=== PATIENT | female | born 2000 | race Caucasian/White ===

== ENCOUNTER → 2021-12-10 19:35 | Outpatient (CLI) | payer OTHER, SELFPAY ==
--- NOTE | 2021-12-10 19:38 | DI.MRI.S_ITS ---
PROCEDURE: MR SHOULDER RT WO CON INDICATIONS: RIGHT SHOULDER PAIN TECHNIQUE: Noncontrast oblique coronal T2 fast spin echo with fat saturation, oblique sagittal T1 spin echo and T2 fast spin echo with fat saturation, axial T1 spin echo and T2 fast spin echo with fat saturation through the shoulder. COMPARISON: None. FINDINGS: Image quality: Excellent. Rotator cuff: No rotator cuff atrophy. No significant tear. Minor interstitial tear versus tendinosis at the junctional zone between the supra and infraspinatus (8/9). Bones and bursae: No acute fracture or dislocation. No significant acromioclavicular degeneration. Trace subacromial subdeltoid bursal fluid. Capsule and soft tissues: Within the limits of non arthrographic evaluation, there is high signal in the superior labrum (8/12, 13) around the location of the biceps anchor. The coracoid humeral ligament is within normal limits. A bit of fat signal is maintained in the rotator interval. The inferior glenohumeral ligament is under distended and not well seen. There is no edema. No high-grade arthrosis of the glenohumeral joint. The long head biceps tendon is well situated. IMPRESSION: Within the limits of non arthrographic evaluation, there is a suspected SLAP tear, including the attachment site of the biceps tendon. No major rotator cuff pathology. Dictated by: Kishore Gamez M.D. on 12/13/2021 at 14:13 Approved by: Kishore Gamez M.D. on 12/13/2021 at 14:25
== END ==
PROVIDERS: Referring Provider Student in an Organized Health Care Education/Training Program; Visit Provider Student in an Organized Health Care Education/Training Program
DX: S46.0 Injury of muscle(s) and tendon(s) of the rotator cuff of shoulder (principal); M25.511 Pain in right shoulder; X50.9XXA Other and unspecified overexertion or strenuous movements or postures, initial encounter
CPT/HCPCS: 73221

== ENCOUNTER 2023-07-08 13:24 | Emergency (ER) | payer OTHER, SELFPAY ==
[2023-07-08] VITALS (8 sets, daily range): BP systolic 112–113; BP diastolic 49–69; PULSE 73–82; RESP 14–18; TEMP 36.4–36.6; O2SAT 93–99; BMI 23.6
--- NOTE | 2023-07-08 13:12 | ED.EXTPRO ---
HPI - Extremity Problem <Augusto Chen PA-C - Last Filed: 07/08/23 14:48> General Chief complaint: Extremity Injury, Upper Stated complaint: l. radial ulna History of Present Illness HPI Narrative: This is a 23-year-old female presents emergency department due to a jujitsu injury about an hour ago. States that she was wrestling on the mat when she fell down and felt a pop and a crack to her left forearm. Complaining primarily of left forearm pain. She denies injuring any other part of her body. She denies any numbness affecting her distal extremity. She had not hit her head or lose conscious. Last ate at 8:00 a.m. this morning. No other medical history. Related Data Allergies Allergy/AdvReac Type Severity Reaction Status Date / Time No Known Drug Allergies Allergy Verified 07/08/23 13:28 Review of Systems <Augusto Chen PA-C - Last Filed: 07/08/23 14:48> Review of Systems Narrative: GENERAL: Denies chills, fatigue, malaise, fever, sweats. HEENT: Denies sinus pain, ear pain, sore throat, difficulty swallowing, dizziness. RESPIRATORY: Denies dyspnea, cough, wheezing, hemoptysis, sputum. CARDIOVASCULAR: Denies chest pain, palpitations, orthopnea, edema, GASTROINTESTINAL: Denies nausea, vomiting, abdominal pain, diarrhea, constipation, melena. : Denies dysuria, frequency, incontinence, hematuria, urinary retention. MUSCULOSKELETAL: Left forearm pain SKIN: Denies rash, skin lesions, or other NEUROLOGIC: Denies weakness, headache, numbness, change in speech, confusion, seizures, incoordination. PSYCHIATRIC: No concerning psychosocial issues. 12 point review of systems is negative except for those stated above Patient History <Augusto Chen PA-C - Last Filed: 07/08/23 14:48> Social History Smoking Status: Unknown if ever smoked Exam <MARYBETH Conde Last Filed: 07/08/23 14:48> Narrative Exam Narrative: GENERAL: Well-developed patient, in mild distress. HEAD: Atraumatic. Normocephalic. EYES: Pupils equal round and reactive. Extraocular motions intact. No scleral icterus. No injection or drainage. ENT: Nose without bleeding, purulent drainage. Throat without erythema, tonsillar hypertrophy or exudate. Airway patent. NECK: Trachea midline. Non tender EXTREMITIES: Neurovascularly intact throughout. 2+ radial pulse distally. Obvious deformity to the left forearm. No breaks in the skin. NEURO: AOx3. SKIN: No rash or erythema of visible areas Initial Vital Signs Initial Vital Signs: Vital Signs Temperature 97.6 F 07/08/23 13:25 Pulse Rate 82 07/08/23 13:25 Respiratory Rate 14 07/08/23 13:25 Blood Pressure 112/49 L 07/08/23 13:25 Pulse Oximetry 98 07/08/23 13:25 Oxygen Delivery Method Room Air 07/08/23 13:25 <Fatuma Odonnell DO - Last Filed: 07/08/23 17:05> Initial Vital Signs Initial Vital Signs: Vital Signs Temperature 97.6 F 07/08/23 13:25 Pulse Rate 82 07/08/23 13:25 Respiratory Rate 14 07/08/23 13:25 Blood Pressure 112/49 L 07/08/23 13:25 Pulse Oximetry 98 07/08/23 13:25 Oxygen Delivery Method Room Air 07/08/23 13:25 Course <Augusto Chen PA-C - Last Filed: 07/08/23 14:48> Orders Ordered: ED Orders 07/08/23 13:28 XR forearm LT 2V Stat Discontinued Medications Hydromorphone HCl (Hydromorphone 0.5 Mg Inj) 0.5 mg IV NOW ONE Stop: 07/08/23 13:53 Last Admin: 07/08/23 14:00 Dose: 0.5 mg Documented By: RIK Hydromorphone HCl (Hydromorphone 0.5 Mg Inj) 0.5 mg IV NOW ONE Stop: 07/08/23 14:17 Last Admin: 07/08/23 14:22 Dose: 0.5 mg Documented By: MLM Hydromorphone HCl (Hydromorphone 0.5 Mg Inj) 0.5 mg IV NOW ONE Stop: 07/08/23 15:09 Hydromorphone HCl (Hydromorphone 0.5 Mg Inj) 0.5 mg IV NOW ONE Stop: 07/08/23 16:15 Last Admin: 07/08/23 16:40 Dose: 0.5 mg Documented By: SANDY Ondansetron HCl (Ondansetron 4 Mg/2 Ml Inj) 4 mg IV NOW ONE Stop: 07/08/23 13:54 Last Admin: 07/08/23 14:00 Dose: 4 mg Documented By: RIK Vital Signs Vital signs: Vital Signs - 8 hr 07/08/23 13:25 07/08/23 14:26 07/08/23 14:30 Temperature 97.6 F Pulse Rate 82 76 76 Respiratory Rate 14 Blood Pressure 112/49 L Pulse Oximetry 98 99 93 Oxygen Delivery Method Room Air 07/08/23 15:00 07/08/23 15:05 07/08/23 15:05 Temperature Pulse Rate 73 76 Respiratory Rate Blood Pressure 113/69 Pulse Oximetry 96 98 Oxygen Delivery Method 07/08/23 15:06 07/08/23 15:30 07/08/23 16:00 Temperature 97.8 F Pulse Rate 77 78 77 Respiratory Rate 18 Blood Pressure 113/69 Pulse Oximetry 98 95 96 Oxygen Delivery Method Room Air <Fatuma Odonnell DO - Last Filed: 07/08/23 17:05> Orders Ordered: ED Orders 07/08/23 13:28 XR forearm LT 2V Stat Discontinued Medications Hydromorphone HCl (Hydromorphone 0.5 Mg Inj) 0.5 mg IV NOW ONE Stop: 07/08/23 13:53 Last Admin: 07/08/23 14:00 Dose: 0.5 mg Documented By: RIK Hydromorphone HCl (Hydromorphone 0.5 Mg Inj) 0.5 mg IV NOW ONE Stop: 07/08/23 14:17 Last Admin: 07/08/23 14:22 Dose: 0.5 mg Documented By: RIK Hydromorphone HCl (Hydromorphone 0.5 Mg Inj) 0.5 mg IV NOW ONE Stop: 07/08/23 15:09 Hydromorphone HCl (Hydromorphone 0.5 Mg Inj) 0.5 mg IV NOW ONE Stop: 07/08/23 16:15 Last Admin: 07/08/23 16:40 Dose: 0.5 mg Documented By: SANDY Ondansetron HCl (Ondansetron 4 Mg/2 Ml Inj) 4 mg IV NOW ONE Stop: 07/08/23 13:54 Last Admin: 07/08/23 14:00 Dose: 4 mg Documented By: RIK Vital Signs Vital signs: Vital Signs - 8 hr 07/08/23 13:25 07/08/23 14:26 07/08/23 14:30 Temperature 97.6 F Pulse Rate 82 76 76 Respiratory Rate 14 Blood Pressure 112/49 L Pulse Oximetry 98 99 93 Oxygen Delivery Method Room Air 07/08/23 15:00 07/08/23 15:05 07/08/23 15:05 Temperature Pulse Rate 73 76 Respiratory Rate Blood Pressure 113/69 Pulse Oximetry 96 98 Oxygen Delivery Method 07/08/23 15:06 07/08/23 15:30 07/08/23 16:00 Temperature 97.8 F Pulse Rate 77 78 77 Respiratory Rate 18 Blood Pressure 113/69 Pulse Oximetry 98 95 96 Oxygen Delivery Method Room Air MDM - Extremity (Nontraumatic) <Augusto Chen PA-C - Last Filed: 07/08/23 14:48> Imaging Data Extremity x-ray #1: Radiologist's Impression: Close Forearm X-Ray (Signed) Anabella Vasquez - 07/08/23 Shoulder MRI (Signed) Kishore Gamez - 12/10/21 [place] [address] XRay Report Signed Patient: Stephie Graham MR#: [id number] : 2000 Acct:[id number] Age/Sex: 23 / F Date of Service: 07/08/23 Loc: ED Accession Number: [id number] Procedure: XR forearm LT 2V Ordering Provider: Augusto Chen P.A-C PROCEDURE: XR FOREARM LT 2V INDICATIONS: L wrist pain s/p fall TECHNIQUE: 2 views of the forearm were acquired. COMPARISON: None. FINDINGS: Bones: Comminuted and moderately displaced fracture of the mid ulnar and radial shafts with apex angulation. No suspicious bony lesions. Soft tissues: No suspicious soft tissue calcifications or masses. Marked soft tissue swelling of the forearm IMPRESSION: Comminuted and moderately displaced fracture of the mid ulnar and radial shaft with apex angulation. Marked soft tissue swelling of the forearm. Approved by: Anabella Vasquez M.D. on 07/08/2023 at 13:36 MDM Narrative Medical decision making narrative: ED course: This is a 23-year-old female presents emergency department due to left forearm injury while practicing jerrell. Patient has a midshaft radius and ulna fracture. She was neurovascularly intact throughout. Closed injury. Case was discussed with the on-call orthopedist, Dr. Shea, who recommended speaking with [facility] about possible further treatment. Case was discussed with Dr. Dodson, [facility] attending of the Emergency Department who accepted the patient for transfer. Patient will be sent via BLS. CC: Left forearm pain Complicating co-morbidities: None Data collected from: Previous notes Medical records reviewed: Patient was not been to this emergency department in the past. Differential considered, but not limited to: Fracture, nerve injury, vessel injury Exam documented above, pertinent findings include: Neurovascularly intact, 2+ radial pulse Lab Test results independently reviewed as above. Pertinent findings: None obtained Imaging studies independently reviewed: X-ray shows fracture of radius and ulna Scores Used: None MIPS Elements: None Consultations: None Treatments: IV pain medications Re-evaluations: Patient continues to be neurovascularly intact Discussion: Discussed plan with the patient was comfortable with the plan Diagnosis: Left radius and ulna fracture Disposition: see below, along with detailed discharge instructions that have been reviewed with patient as well as indications for ED re-evaluation and additional outpatient follow up Discharge Plan Departure Patient Disposition: [facility] Clinical Impression: Distal radius fracture, left, Ulna fracture Referrals: *Temp,ED* [Primary Care Provider] - Stand Alone Forms: Patient Portal/API ED Sign-out <Fatuma Odonnell DO - Last Filed: 07/08/23 17:05> Cosign ED Attending Tracee Attestation: I was available for consultation.
--- NOTE | 2023-07-08 13:28 | DI.RAD.S_ITS ---
PROCEDURE: XR FOREARM LT 2V INDICATIONS: L wrist pain s/p fall TECHNIQUE: 2 views of the forearm were acquired. COMPARISON: None. FINDINGS: Bones: Comminuted and moderately displaced fracture of the mid ulnar and radial shafts with apex angulation. No suspicious bony lesions. Soft tissues: No suspicious soft tissue calcifications or masses. Marked soft tissue swelling of the forearm IMPRESSION: Comminuted and moderately displaced fracture of the mid ulnar and radial shaft with apex angulation. Marked soft tissue swelling of the forearm. Approved by: Anabella Vasquez M.D. on 07/08/2023 at 13:36
[2023-07-08] MEDS: HYDROMORPHONE 0.5 MG INJ IV ×3 (14:00→16:40)
[2023-07-08] MEDS: ONDANSETRON 4 MG/2 ML INJ IV (14:00)
== END 2023-07-08 16:46 | disposition short-term general hospital (02) ==
PROVIDERS: Emergency Provider Physician Assistant Medical
DX: S52.502A Unspecified fracture of the lower end of left radius, initial encounter for closed fracture (principal); S52.202A Unspecified fracture of shaft of left ulna, initial encounter for closed fracture; W18.30XA Fall on same level, unspecified, initial encounter; Y93.89 Activity, other specified
CPT/HCPCS: 73090; 96374; 96375; 96376; 99284; J1170; J2405

== ENCOUNTER 2024-02-19 08:15 | Outpatient (RCR) | payer OTHER, SELFPAY ==
--- NOTE | 2023-10-11 11:38 | OT.OPPOC ---
Physical, Occupational & Speech Therapy At [facility] Stephie Graham [id number] 2000 Visit Care Team Role Provider Type Jeremy Santiago PA-C Attending Provider Non-Staff Family Provider Primary Care Provider Referring Provider Address: [address] [place] [address], [id number] Fax: Occupational Therapy Plan of Care OT Outpatient Adult Evaluation Start: 10/11/23 09:53 Freq: Status: Active Protocol: Document 10/11/23 09:57 NOREEN (Rec: 10/11/23 11:37 NOREEN [id number]) General Information - Adult Visit Information Visit Number 05/05 Plan of Care Dates 10/11/23-11/22/23 Insurance Information Prime, 12 visits approved Session Time Visit Start Date 10/11/23 Visit Start Time 09:54 Visit Stop Time 10:45 Setting Treatment Setting Outpatient Care Visit Type Note Type Initial Evaluation Referral Referring Physician Jeremy Montiel Reason for Referral limited ROM of left wrist s/p ORIF Identification Identification Confirmed Yes Identification Confirmed By self Goals Objective Measurements Objective Measurements MMT: Elbow flexion L 4; elbow extension L 4; wrist flex 5, wrist ext 4- (R UE 5/5) ROM L wrist/forearm: flexion 65A/70P; extension 55A/74P; radial deviation 19A, ulnar deviation 35A; pronation 52A/ 81P; supination 80A/88P ROM L thumb: MP (+)10 to 72 A; IP (-) 4 to 81 Film Splicer: R 96#; L 47# avg Pinch: tip R 14#, L 8#; 3 jaw R 19#, L 10#; lateral R 16#, L 13# Sensation assessment with 10g monofilament. Pt with impaired sensation at radial nerve innervation of R thumb. Short Term Goals Short Term Goals 1.Pt will increase L wrist extension to 65 A for improved ADLs 2.Pt will increase pronation to 70 A for improved ability to open doors. 3.Pt will increase L studio camera operator strength to 60# for improved tool use. 4.Pt will report overall improved perceived function in L UE with a QuickDash score of 25 5.Pt will be I with stretching and scar management HEP Penitentiary Goals Board Saw Runner Goals 1.Pt will increase L wrist strength to 4+ or better for improved IADLs. 2.Pt will increase pronation to WFL for improved function. 3.Pt will increase L studio camera operator strength to 80# for improved object manipulation. 4.Pt will report/demonstrate being able to open a jar without increase in pain. 5.Pt will be I with strengthening HEP. Assessment/Plan Assessment Patient Response Excellent Rehabilitation Potential Excellent Impairments Identified ADLs,Body Mechanics, Coordination/Dexterity, Flexibility,Functional Activities,Pain,Weakness,Range of Motion,Recreational Activities,Meaningful Activities,Soft Tissue Mobility Treatment Assessment Stephie is a 23 yo F sustained who reports falling down on the mat during . She says she heard and felt it break. Stephie presented to ED with L wrist pain s/p fall on 07/08/23, x-ray imaging showed comminuted and moderately displaced fx of the mid ulnar and radial shafts. Stephie underwent ORIF of left radius and ulna on 07/10. She was referred to OT due to limited ROM of left (non- dominant) wrist. Stephie has no significant Pmhx. PLOF: Prior to injury, Stephie trained jerrell 4-5/ week, participating in moderate to intense exercises an hour and a half each time. 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 She is responsible for patient care (taking vitals, helping patients on/off of mat, etc) as well as computer and paperwork. Part of her job requirements as a [employer] personnel is a yearly PRT ( physical readiness test) and to participate in regular ongoing physical training. Prior to injury, Stephie was I with these. Current: Stephie reports having to modify her work related tasks. She has a difficult time using a blood pressure cuff and has been unable to perform her duties during a [employer] situation. She is unable to participate in PRT (physical readiness test) and is unable to participate in physical training with the [employer]. With her BADL/IADL, she reports difficulty in all B tasks, but especially opening jars, scrubbing the bathroom, and cutting vegetables. She reports that she cuts a lot of vegetables but she is unable to hold the food still with her L hand while cutting and is concerned she is going to cut herself. Stephie complains about having difficulty opening doors. She previously would steer the car, primarily with her L hand , she is now having to use hands equally. She is also unable to wash her back during bathing. At times she has to ask assistance from her partner to complete BADL/IADL tasks. Stephie reports pain on volar and dorsal aspects of radial forearm extending distally to MP joints of dorsal hand for digits 1-3 and on the volar hand the lateral edge of her thumb distal to IP. She rates these between 3-6/10 at rest. At times her pain reports are as low as 2/10. QuickDash Disability/Symptom score: 50; Work Module score: 25; Sports Module Score 75 Stephie is a motivated 28 year-old who was living a very physically active life prior to her injury. She presents with decreased ROM, muscle weakness, scar sensitivity ( especially on anterior forearm , with keloiding), and impaired sensation. She demonstrates compensatory strategies of the shoulder rather than finer movements of the forearm and hand when engaging in her environment. These deficits limit her ability to engage in meaningful activity, work related tasks, leisure tasks, and her basic ADL needs. Skilled OT services are appropriate to address these deficits and promote return to PLOF. Reviewed with Patient Goals,Home Exercise Program Patient Understanding Excellent Plan Length of treatment (weeks) 6 Plan of Care Start Date 10/11/23 Plan of Care End Date 11/22/23 Treatment Frequency Twice a Week Treatment Duration 45 Minutes Therapeutic Contents Active Range of Motion, Functional Activities,Home Exercise Program,Joint Protection,Manual Therapy, Education,Neuromuscular Re- Education,Stretching/ Flexibility Activities, Therapeutic Activities, Therapeutic Exercises, Modalities Additional Areas of Treatment MHP/CP/Contrast Patient Instruction Home Exercise Program,Plan of Care Functional Wrist/Hand Scan Hand Side Sensory Assessment Sensory Profile2 Electronically Signed by: Alie Hays OT 10/11/23 3980 If you are in agreement with this Plan of Care, please return a signed and dated copy. I have reviewed this Plan of Care and certify that the skilled therapy services above are required to meet the patient?s needs. Physician Signature Date Printed Name and Credentials Clinical Instructor Signature Printed Name and Credentials
--- NOTE | 2023-10-16 09:38 | OT.OP.TRT ---
Visit Care Team Role Provider Type Jeremy Santiago PA-C Attending Provider Non-Staff Family Provider Primary Care Provider Referring Provider Specialty: Medical Address: [address] [place] [address], [id number] Email: Occupational Therapy Treatment Note OT Outpatient Treatment Note - Adult Start: 10/11/23 09:53 Freq: Status: Active Protocol: Document 10/16/23 09:23 NOREEN (Rec: 10/16/23 09:37 NOREEN [id number]) OT Outpatient Adult Treatment Note Session Time Visit Start Date 10/16/23 Visit Start Time 08:15 Visit Stop Time 09:00 Visit Information Visit Number 06/05 Plan of Care Dates 10/11/23-11/22/23 Insurance Information T[employer]arePrime 12 visits approved Setting Treatment Setting Outpatient Care Visit Type Note Type Treatment Note - Subjective Identification Type Name Observations Serenity states that she had a follow-up with her MD who told her that both her bones have fully healed. She was released to full-duty at work and was told she could return to her [employer] physical training as well Chief Complaint(s) Loss of Motion/Stiffness,Pain Effect on Activity - Objective Objective Measurements Pt reports pain at rest at 1/ 10 at lateral wrist/forearm and 4/10 with activity during tx. Short Term Goals 1.Pt will increase L wrist extension to 65 A for improved ADLs 2.Pt will increase pronation to 70 A for improved ability to open doors. 3.Pt will increase L spray technician strength to 60# for improved tool use. 4.Pt will report overall improved perceived function in L UE with a QuickDash scoreof 25 5.Pt will be I with stretching and scar management HEP Half-Way Goals 1.Pt will increase L wrist strength to 4+ or better for improved IADLs. 2.Pt will increase pronation to WFL for improved function. 3.Pt will increase L spray technician strength to 80# for improved object manipulation. 4.Pt will report/demonstrate being able to open a jar without increase in pain. 5.Pt will be I with strengthening HEP. - Treatment 1 Descriptor MHP applied to forearm for improved extensibility of soft tissues for PROM Exercises 2 Descriptor wrist flexion 2# x10 wrist extension 2# x10 radial/ulnar deviation 2# x10 forearm pronation/supination ( holding head of weight) 2# x10 Verbal Cues 1-2 1 Descriptor digiflex green spray technician 15x2 Manual Therapy Manual Therapy Serenity tolerates PROM of L wrist flexion, extension, radial deviation, ulnar deviation, forearm pronation and forearm supination to near WFL in all planes. Pt also tolerates scar massage of anterior forearm scar. - Assessment Patient Response to Treatment Good Rehabilitation Potential Excellent Impairments Identified ADLs,Body Mechanics, Flexibility,Functional Activities,Pain,Weakness,Range of Motion,Meaningful Activities,Stiffness,Soft Tissue Mobility Progress Towards Goals Excellent Progress Assessment of Overall Progress Improving Assessment of Improvement Serenity toletared PROM to near WFL for all movements an planes of movement with minimal increase in c/o pain. OT educated pt on currect firmness of pressure with scar massage, pt verbalizes understanding and reports she was not performing with as much force. Serenity requires occasional vcs to avoid compensatory movements during PROM and strengthening tasks today. Home Exercise Program reviewed and printed copy issued to pt. Reviewed with Patient/Caregiver Home Exercise Program - Plan Therapy Recommendations Continue with Current Program Amount of Therapy Recommended 1-2 Months Frequency of Treatment Twice a Week Length of Session 45 Minutes Therapeutic Contents Active Range of Motion, Functional Activities,Home Exercise Program,Joint Protection,Manual Therapy, Education,Self-Care,Stretching /Flexibility Activities, Therapeutic Activities, Therapeutic Exercises, Modalities,Sensory Re- education Modalities As Needed Additional Types of Modalities CP/MHP/Contrast
--- NOTE | 2023-10-18 08:31 | OT.OP.TRT ---
Visit Care Team Role Provider Type Jeremy Santiago PA-C Attending Provider Non-Staff Family Provider Primary Care Provider Referring Provider Specialty: Medical Address: [address] [place] [address], [id number] Email: Occupational Therapy Treatment Note OT Outpatient Treatment Note - Adult Start: 10/11/23 09:53 Freq: Status: Active Protocol: Document 10/18/23 07:36 NOREEN (Rec: 10/18/23 07:43 NOREEN [id number]) OT Outpatient Adult Treatment Note Session Time Visit Start Date 10/18/23 Visit Start Time 07:30 Visit Stop Time 08:15 Visit Information Visit Number 07/03 Plan of Care Dates 10/11/23-11/22/23 Insurance Information T[employer]arePrime 12 visits approved Setting Treatment Setting Outpatient Care Visit Type Note Type Treatment Note - Subjective Identification Type Name Observations Serenity states that she did physical training with work yesterday. She said she performed 30 wall-ups at a 30 degree incline. She reported having no pain following the task. She is hoping she can take her physical for work in mid-November. She will need to be able to hold a forearm plank for 3 minutes and perform a minimum of 19 push- ups. Her record for push-ups is 60. Chief Complaint(s) Loss of Motion/Stiffness,Pain Effect on Activity - Objective Objective Measurements Pt reports pain at 4/10 during digiflex activity. She reports that pain reduces with continued reps and is eventually reported at 1/10. Short Term Goals 1.Pt will increase L wrist extension to 65 A for improved ADLs 2.Pt will increase pronation to 70 A for improved ability to open doors. 3.Pt will increase L inhalation therapist strength to 60# for improved tool use. 4.Pt will report overall improved perceived function in L UE with a QuickDash scoreof 25 5.Pt will be I with stretching and scar management HEP Snf Goals 1.Pt will increase L wrist strength to 4+ or better for improved IADLs. 2.Pt will increase pronation to WFL for improved function. 3.Pt will increase L inhalation therapist strength to 80# for improved object manipulation. 4.Pt will report/demonstrate being able to open a jar without increase in pain. 5.Pt will be I with strengthening HEP. - Treatment 1 Descriptor MHP applied to forearm for improved extensibility of soft tissues for PROM Exercises 4 Descriptor yellow flex bar pronation x 10 3 Descriptor ball pronation/supination AAROM (8ball) x60 seonds 2 Descriptor wrist flexion 3# x10 wrist extension 3# x10 radial/ulnar deviation 3# x10 forearm pronation/supination ( holding head of weight) 3# x10 1 Descriptor digiflex green inhalation therapist 30x2 Manual Therapy Manual Therapy Stephie tolerated PROM of wrist and forearm in all planes of movement with greater ease today. She tolerated to nearly full ROM in all planes of movement. OT performed scar massage to anterior forearm. Puckering is noted midway up scar with inhalation therapist and pinch tasks. - Assessment Patient Response to Treatment Good Rehabilitation Potential Excellent Impairments Identified ADLs,Body Mechanics, Flexibility,Functional Activities,Pain,Weakness,Range of Motion,Meaningful Activities,Stiffness,Soft Tissue Mobility Progress Towards Goals Excellent Progress Assessment of Overall Progress Improving Assessment of Improvement Stephie continues to be a highly motivated patient. She is engaged in her treatment sessions, asks questions, and asks how to continue to improve on her own time. She tolerated manual therapy well, and verbalizes that her wrist /forearm feel better following these. She tolerated and increase in repetitions and weight with exercises today. She had the most difficulty with pronation strengthening using flex bar. She is able to pace her exercises well without vcs. Pt demonstrates progress toward established goals and would benefit from continued skilled OT services to address current POC. OT to take measurements in next 1-2 treatments. Reviewed with Patient/Caregiver Progress Being Made,Home Exercise Program Patient/Caregiver Understanding Excellent - Plan Therapy Recommendations Continue with Current Program Amount of Therapy Recommended 1-2 Months Frequency of Treatment Twice a Week Length of Session 45 Minutes Therapeutic Contents Active Range of Motion, Functional Activities,Home Exercise Program,Joint Protection,Manual Therapy, Education,Self-Care,Stretching /Flexibility Activities, Therapeutic Activities, Therapeutic Exercises, Modalities,Sensory Re- education Modalities As Needed Additional Types of Modalities CP/MHP/Contrast
--- NOTE | 2023-10-23 10:15 | OT.OP.TRT ---
Visit Care Team Role Provider Type Jeremy Santiago PA-C Attending Provider Non-Staff Family Provider Primary Care Provider Referring Provider Specialty: Medical Address: [address] [place] [address], [id number] Email: Occupational Therapy Treatment Note OT Outpatient Treatment Note - Adult Start: 10/11/23 09:53 Freq: Status: Active Protocol: Document 10/23/23 09:12 NOREEN (Rec: 10/23/23 09:19 NOREEN [id number]) OT Outpatient Adult Treatment Note Session Time Visit Start Date 10/23/23 Visit Start Time 09:00 Visit Stop Time 09:55 Visit Information Visit Number 08/03 Plan of Care Dates 10/11/23-11/22/23 Insurance Information Tricare[employer] 12 visits approved Setting Treatment Setting Outpatient Care Visit Type Note Type Treatment Note - Subjective Identification Type Name Observations 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 She says when she performs L elbow flexion and has any pressure applied by the kids she has sharp pain to posterior elbow at 7/10 that reduces immediately to 2/10 when pressure is removed. She reports that she has been practicing shallow push-ups on her knees 10 reps 2-3 sets with sharp 2/10 pain at wrist and forearm. Serenity also reports that she feels like her ROM is improving and her scar feels like it is improving as well. Chief Complaint(s) Loss of Motion/Stiffness,Pain Effect on Activity - Objective Objective Measurements Pt reports pain during tx at 2 /10 and sharp. Pain is reduced to none when activity/ stretch stopped. Short Term Goals 1.Pt will increase L wrist extension to 65 A for improved ADLs 2.Pt will increase pronation to 70 A for improved ability to open doors. 3.Pt will increase L lever miller strength to 60# for improved tool use. 4.Pt will report overall improved perceived function in L UE with a QuickDash scoreof 25 5.Pt will be I with stretching and scar management HEP- MET 10/23/23 Retirement Goals 1.Pt will increase L wrist strength to 4+ or better for improved IADLs. 2.Pt will increase pronation to WFL for improved function. 3.Pt will increase L lever miller strength to 80# for improved object manipulation. 4.Pt will report/demonstrate being able to open a jar without increase in pain. 5.Pt will be I with strengthening HEP. - Treatment 1 Descriptor MHP applied to forearm for improved extensibility of soft tissues for PROM Exercises 6 Descriptor prayer hand stretch x30 sec reverse prayer hand stretch x30sec 5 Descriptor digit extension web 6.6# x10 4 Descriptor yellow flex bar pronation x 10 3 Descriptor ball pronation/supination AAROM (8ball) x120 seonds 2 Descriptor wrist flexion 3# x15 wrist extension 3# x15 radial/ulnar deviation 3# 15 forearm pronation/supination ( holding head of weight) 3# x15 1 Descriptor digiflex blue lever miller 15x - Assessment Patient Response to Treatment Good Rehabilitation Potential Excellent Impairments Identified ADLs,Body Mechanics, Flexibility,Functional Activities,Pain,Weakness,Range of Motion,Meaningful Activities,Stiffness,Soft Tissue Mobility Progress Towards Goals Excellent Progress Assessment of Overall Progress Improving Assessment of Improvement Stephie continues to be a highly motivated and engaged patient. She tolerated manual therapy well, and verbalizes that her wrist/ forearm feel better following these. Stephie tolerated an increase in reps or weight to existing exercises as well as the addition of new exercises. She requires verbal cues for correct positioning particularly when performing pronation or supination as she otherwise exhibits compensatory strategies. Pt has met STG #5 and demonstrates progress toward established goals. OT to take measurements next treatments. Cont per established POC. Reviewed with Patient/Caregiver Progress Being Made,Home Exercise Program Patient/Caregiver Understanding Excellent - Plan Therapy Recommendations Continue with Current Program Amount of Therapy Recommended 1-2 Months Frequency of Treatment Twice a Week Length of Session 45 Minutes Therapeutic Contents Active Range of Motion, Functional Activities,Home Exercise Program,Joint Protection,Manual Therapy, Education,Self-Care,Stretching /Flexibility Activities, Therapeutic Activities, Therapeutic Exercises, Modalities,Sensory Re- education Modalities As Needed Additional Types of Modalities CP/MHP/Contrast
--- NOTE | 2023-10-25 10:15 | OT.OP.TRT ---
Visit Care Team Role Provider Type Jeremy Santiago PA-C Attending Provider Non-Staff Family Provider Primary Care Provider Referring Provider Specialty: Medical Address: [address] [place] [address], [id number] Email: Occupational Therapy Treatment Note OT Outpatient Treatment Note - Adult Start: 10/11/23 09:53 Freq: Status: Active Protocol: Document 10/25/23 09:05 NOREEN (Rec: 10/25/23 09:17 [email or web address] [id number]) OT Outpatient Adult Treatment Note Session Time Visit Start Date 10/25/23 Visit Start Time 09:00 Visit Stop Time 10:00 Visit Information Visit Number 09/02 Plan of Care Dates 10/11/23-11/22/23 Insurance Information TricarePrime 12 visits approved Setting Treatment Setting Outpatient Care Visit Type Note Type Treatment Note - Subjective Identification Type Name Observations Stephie saw her PCM on Monday , they released her to go back to full duty. They did not agree with the surgeon to release her to return to the PRT. PCM has not released her from the waiver for the PRT. Stephie reports that she held back on her HEP yesterday because she was sore from the day before. Chief Complaint(s) Loss of Motion/Stiffness,Pain Effect on Activity - Objective Objective Measurements AROM measurements: wrist flexion 87, wrist extension 65 , forearm supination 90, forearm pronation 65; test driver strength 67.7# avg Pt reports pain at 1/10 at start amd end pf tx, with max at /10 during tx. Short Term Goals 1.Pt will increase L wrist extension to 65 A for improved ADLs MET 10/24 2.Pt will increase pronation to 70 A for improved ability to open doors. 3.Pt will increase L test driver strength to 60# for improved tool use. MET 10/24 4.Pt will report overall improved perceived function in L UE with a QuickDash scoreof 25 5.Pt will be I with stretching and scar management HEP- MET 10/23/23 Nuisance Wildlife Specialist Goals 1.Pt will increase L wrist strength to 4+ or better for improved IADLs. 2.Pt will increase pronation to WFL for improved function. 3.Pt will increase L test driver strength to 80# for improved object manipulation. 4.Pt will report/demonstrate being able to open a jar without increase in pain. 5.Pt will be I with strengthening HEP. - Exercises 7 Descriptor tband L3: pronation x10 supination x10 hammer curl x10 6 Descriptor prayer hand stretch x30 sec reverse prayer hand stretch x30sec 4 Descriptor yellow flex bar pronation x 15 2 Descriptor wrist flexion 3# x15 wrist extension 3# x15 radial/ulnar deviation 3# 15 forearm pronation/supination ( holding head of weight) 3# x15 Manual Therapy Manual Therapy Serenity tolerated PROM of wrist and forearm in all planes of movement well. Pronation continues to be most limited. OT performed hold/ relax x 4 reps for this ROM today. OT performed scar massage to anterior foerarm - Assessment Patient Response to Treatment Good Rehabilitation Potential Excellent Impairments Identified ADLs,Body Mechanics, Flexibility,Functional Activities,Pain,Weakness,Range of Motion,Meaningful Activities,Stiffness,Soft Tissue Mobility Progress Towards Goals Excellent Progress Assessment of Overall Progress Improving Assessment of Improvement Stephie tolerated treatment well. She continues to be motivated to improve and asks pertinent questions throughout . She demonstrates improved ROM and test driver strength in all planes of movement. Pronation continues to be most limited. OT reminds pt that her hardware may limit full pronation. Pronation is especially important to pt due to specific jujitsu moves and holds. She has met STG #1 and #3 and makes progress toward remaining goals. She continues to require occasional vcs to prevent compensation especially during pronation tasks. Cont per established POC. Reviewed with Patient/Caregiver Progress Being Made,Home Exercise Program Patient/Caregiver Understanding Excellent -
--- NOTE | 2023-10-30 13:01 | OT.OP.TRT ---
Visit Care Team Role Provider Type Jeremy Santiago PA-C Attending Provider Non-Staff Family Provider Primary Care Provider Referring Provider Specialty: Medical Address: [address] [place] [address], [phone] Email: Occupational Therapy Treatment Note OT Outpatient Treatment Note - Adult Start: 10/11/23 09:53 Freq: Status: Active Protocol: Document 10/30/23 09:10 NOREEN (Rec: 10/30/23 09:22 [email or web address] [id number]) OT Outpatient Adult Treatment Note Session Time Visit Start Date 10/30/23 Visit Start Time 09:07 Visit Stop Time 09:45 Visit Information Visit Number 10/03 Plan of Care Dates 10/11/23-11/22/23 Insurance Information T[employer] 12 visits approved Setting Treatment Setting Outpatient Care Visit Type Note Type Treatment Note - Subjective Identification Type Name Observations Serenity reports that she has been very sore. She has been doing a lot of weight bearing tasks. She has increased sensitivity and pain at the anterior forearm scar, specifically when water crossed the scar and with rubbing/touching. Pain at scar rated at 3-4/10. She has elbow joint soreness during supination. Chief Complaint(s) Loss of Motion/Stiffness,Pain Effect on Activity - Objective Objective Measurements Pt completed QuickDasth improved score of 40.9; Work Module 25; Sport Module 50 Short Term Goals 1.Pt will increase L wrist extension to 65 A for improved ADLs MET 10/24 2.Pt will increase pronation to 70 A for improved ability to open doors. 3.Pt will increase L kettle operator strength to 60# for improved tool use. MET 10/24 4.Pt will report overall improved perceived function in L UE with a QuickDash scoreof 25 5.Pt will be I with stretching and scar management HEP- MET 10/23/23 Management Recruiter Goals 1.Pt will increase L wrist strength to 4+ or better for improved IADLs. 2.Pt will increase pronation to WFL for improved function. 3.Pt will increase L kettle operator strength to 80# for improved object manipulation. 4.Pt will report/demonstrate being able to open a jar without increase in pain. 5.Pt will be I with strengthening HEP. - Treatment 1 Descriptor MHP applied to forearm for improved extensibility of soft tissues for PROM Exercises 7 Descriptor tband L3: pronation x15 supination x15 hammer curl x15 wrist flex x15 wrist ext x15 4 Descriptor red flex bar pronation x 15 Manual Therapy Manual Therapy Serenity tolerated PROM of wrist and forearm in all planes of movement well, with concentration on pronation which continues to be most limited. OT performed hold/relax x 4 reps for pronation. OT performed scar massage to anterior foerarm - Assessment Patient Response to Treatment Good Rehabilitation Potential Excellent Impairments Identified ADLs,Body Mechanics, Flexibility,Functional Activities,Pain,Weakness,Range of Motion,Meaningful Activities,Stiffness,Soft Tissue Mobility Progress Towards Goals Excellent Progress Assessment of Overall Progress Improving Assessment of Improvement Stephie continues to tolerate treatment well. MTT focus on pronation and scar massage as these are most limiting for her. She reports improved perception of function with QuickDash, Work Module, and Sports Module. She tolerated the addition of new tband exercises today, with min verbal cues for correct positioning, especially to avoid compensation where pronation is limited. Cont per established POC. Reviewed with Patient/Caregiver Progress Being Made,Home Exercise Program Patient/Caregiver Understanding Excellent -
--- NOTE | 2023-11-01 10:14 | OT.OP.TRT ---
Visit Care Team Role Provider Type Jeremy Santiago PA-C Attending Provider Non-Staff Family Provider Primary Care Provider Referring Provider Specialty: Medical Address: [address] [place] [id number] Email: Occupational Therapy Treatment Note OT Outpatient Treatment Note - Adult Start: 10/11/23 09:53 Freq: Status: Active Protocol: Document 11/01/23 08:52 NOREEN (Rec: 11/01/23 08:56 NOREEN [id number]) OT Outpatient Adult Treatment Note Session Time Visit Start Date 11/01/23 Visit Start Time 09:00 Visit Stop Time 10:00 Visit Information Visit Number 11/02 Plan of Care Dates 10/11/23-11/22/23 Setting Treatment Setting Outpatient Care Visit Type Note Type Treatment Note - Subjective Identification Type Name Observations Stephie has started a new job . 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 She will have to lift heavy mannequins for this but says she will have someone assist. She is concerned with how she will demonstrate chest compressions. She also reports that she can drive with just her L hand, if she steers to the R with just her L UE she gets a painful build up followed by a click. She has been avoiding this position. Chief Complaint(s) Loss of Motion/Stiffness,Pain Effect on Activity - Objective Short Term Goals 1.Pt will increase L wrist extension to 65 A for improved ADLs MET 10/24 2.Pt will increase pronation to 70 A for improved ability to open doors. 3.Pt will increase L trouble tracer strength to 60# for improved tool use. MET 10/24 4.Pt will report overall improved perceived function in L UE with a QuickDash scoreof 25 5.Pt will be I with stretching and scar management HEP- MET 10/23/23 Career Coach Goals 1.Pt will increase L wrist strength to 4+ or better for improved IADLs. 2.Pt will increase pronation to WFL for improved function. 3.Pt will increase L trouble tracer strength to 80# for improved object manipulation. 4.Pt will report/demonstrate being able to open a jar without increase in pain. 5.Pt will be I with strengthening HEP. - Treatment 1 Descriptor MHP applied to forearm for improved extensibility of soft tissues for PROM Exercises 8 Descriptor tputty: pink composite fist alternating tip pinch digit ext thumb flex, ext, abd/add 7 Descriptor tband L3: pronation x20 supination x20 hammer curl x20 wrist flex x20 wrist ext x20 4 Descriptor red flex bar: pronation x15, flexion/extension wringing x15 , proprioceptive wobble x60 seconds Manual Therapy Manual Therapy Serenity tolerated PROM of wrist and forearm in all planes of movement well, with concentration on pronationwhich continues to be most limited. OT performed hold/relax x 6 reps for pronation. OT performed scar massage to anterior foerarm - Assessment Patient Response to Treatment Good Rehabilitation Potential Excellent Impairments Identified ADLs,Body Mechanics, Flexibility,Functional Activities,Pain,Weakness,Range of Motion,Meaningful Activities,Stiffness,Soft Tissue Mobility Progress Towards Goals Excellent Progress Assessment of Overall Progress Improving Assessment of Improvement Serenity continues to be engaged in sessions and tolerates treatment well. MTT are focused on pronation and scar massage as these are most limiting for her. She demonstrated her tband HEP with minimal vcs to avoid compensatory strategies. OT to continue to review until pt is I. She tolerated the addition of trouble tracer exercises using tputty today. Overall, pt reports no pain at the end of tx session. She continues to demonstrate improvements towards function and goals. Cont per established POC. Reviewed with Patient/Caregiver Progress Being Made,Home Exercise Program Patient/Caregiver Understanding Excellent - Plan Therapy Recommendations Continue with Current Program Amount of Therapy Recommended 1-2 Months Frequency of Treatment Twice a Week Length of Session 45 Minutes Therapeutic Contents Active Range of Motion,Client Education,Functional Activities,Home Exercise Program,Joint Protection, Manual Therapy,Education, Stretching/Flexibility Activities,Therapeutic Activities,Therapeutic Exercises,Modalities,Sensory Re-education Modalities As Needed Additional Types of Modalities MHP/CP/Contrast
--- NOTE | 2023-11-06 11:31 | OT.OP.TRT ---
Visit Care Team Role Provider Type Jeremy Santiago PA-C Attending Provider Non-Staff Family Provider Primary Care Provider Referring Provider Specialty: Medical Address: [address] [place] [address], [id number] Email: Occupational Therapy Treatment Note OT Outpatient Treatment Note - Adult Start: 10/11/23 09:53 Freq: Status: Active Protocol: Document 11/06/23 09:49 MARYCRUZJOSEPHLILI (Rec: 11/06/23 10:13 NOREEN [id number]) OT Outpatient Adult Treatment Note Session Time Visit Start Date 11/06/23 Visit Start Time 09:45 Visit Stop Time 10:30 Visit Information Visit Number 12/03 Plan of Care Dates 10/11/23-11/22/23 Insurance Information TricarePrime 12 visits approved Setting Treatment Setting Outpatient Care Visit Type Note Type Treatment Note - Subjective Identification Type Name Observations Pt states, Monday I rolled with skilled [employer] people. It felt good?. She reports that she has been forgetting to do her tband exercises, but has been consistent with the scar massage and stretching. She says her scar feels more sensitive and she has been having sharp forearm pain at 3 /10 periodically. No pain during tx. Chief Complaint(s) Loss of Motion/Stiffness,Pain Effect on Activity - Objective Short Term Goals 1.Pt will increase L wrist extension to 65 A for improved ADLs MET 10/24 2.Pt will increase pronation to 70 A for improved ability to open doors. 3.Pt will increase L budget record clerk strength to 60# for improved tool use. MET 10/24 4.Pt will report overall improved perceived function in L UE with a QuickDash scoreof 25 5.Pt will be I with stretching and scar management HEP- MET 10/23/23 Probation Counselor Goals 1.Pt will increase L wrist strength to 4+ or better for improved IADLs. 2.Pt will increase pronation to WFL for improved function. 3.Pt will increase L budget record clerk strength to 80# for improved object manipulation. 4.Pt will report/demonstrate being able to open a jar without increase in pain. 5.Pt will be I with strengthening HEP. MET 11/06/23 - Treatment 2 Descriptor kinesio tape applied at 85% stretch in cross lowery fashion across anterior scar for scar management 1 Descriptor MHP applied to forearm for improved extensibility of soft tissues for PROM Exercises 7 Descriptor tband L3: pronation x20 supination x20 hammer curl x20 wrist flex x20 wrist ext x20 Manual Therapy Manual Therapy Serenity tolerated PROM of wrist and forearm in all planes of movement well, with concentration on pronation which continues to be most limited. OT performed hold/ relax x 6 reps for pronation. - Assessment Patient Response to Treatment Good Rehabilitation Potential Excellent Impairments Identified ADLs,Body Mechanics, Flexibility,Functional Activities,Pain,Weakness,Range of Motion,Meaningful Activities,Stiffness,Soft Tissue Mobility Progress Towards Goals Excellent Progress Assessment of Overall Progress Improving Assessment of Improvement OT educated pt on purpose of kinesio taping for scar management, proper removal, and precautions with tape wearing. Pt tolerated placement of kinesio tape. Pt performed tband exercises without compensation or need for vcs. Pt is I with tband HEP, meeting LTG #5. Cont pt per established POC. Reviewed with Patient/Caregiver Progress Being Made,Home Exercise Program Patient/Caregiver Understanding Excellent - Plan Therapy Recommendations Continue with Current Program Amount of Therapy Recommended 1-2 Months Frequency of Treatment Twice a Week Therapeutic Contents Active Range of Motion,Client Education,Functional Activities,Home Exercise Program,Joint Protection, Manual Therapy,Education, Stretching/Flexibility Activities,Therapeutic Activities,Therapeutic Exercises,Modalities,Sensory Re-education Modalities As Needed Additional Types of Modalities MHP/CP/Contrast
--- NOTE | 2023-11-17 11:02 | OT.OP.TRT ---
Visit Care Team Role Provider Type Jeremy Santiago PA-C Attending Provider Non-Staff Family Provider Primary Care Provider Referring Provider Specialty: Medical Address: [address] [place] [address], [id number] Email: Occupational Therapy Treatment Note OT Outpatient Treatment Note - Adult Start: 10/11/23 09:53 Freq: Status: Active Protocol: Document 11/17/23 09:15 MARYCRUZVIOLETTA (Rec: 11/17/23 09:32 MARYCRUZJOSEPHLILI [id number]) OT Outpatient Adult Treatment Note Session Time Visit Start Date 11/17/23 Visit Start Time 09:00-09:45 Visit Information Visit Number 01/03 Plan of Care Dates 10/11/23-11/22/23 Insurance Information T[employer] 12 visits approved Setting Treatment Setting Outpatient Care Visit Type Note Type Treatment Note - Subjective Identification Type Name Observations Pt reports that she has been progressing her weight bearing exercises on extended arm, but continues to remain fearful in this position. She reports muscle fatigue and fear of falling in this position. She also reports that the kinesio tape did not stay on her scar very long. Chief Complaint(s) Loss of Motion/Stiffness,Pain Effect on Activity - Objective Objective Measurements MMT: elbow flexion L 4+, elbow extension L 4+, wrist flexion 5, wrist extension 4-. ROM L wrist/forearm: flexion 87, extension 70; supination 90, pronation 75 Civil Cadd Technician: L: 75#, 61#, 66# (avg 67 .3#) Pinch: tip L 14#, 3 jaw 17#, lateral 14# Short Term Goals 1.Pt will increase L wrist extension to 65 A for improved ADLs MET 10/24 2.Pt will increase pronation to 70 A for improved ability to open doors. MET 11/16 3.Pt will increase L custom marine canvas fabricator strength to 60# for improved tool use. MET 10/24 4.Pt will report overall improved perceived function in L UE with a QuickDash scoreof 25 5.Pt will be I with stretching and scar management HEP- MET 10/23/23 Assistant City Attorney Goals 1.Pt will increase L wrist strength to 4+ or better for improved IADLs. MET 11/16 2.Pt will increase pronation to WFL for improved function. 3.Pt will increase L custom marine canvas fabricator strength to 80# for improved object manipulation. 4.Pt will report/demonstrate being able to open a jar without increase in pain. 5.Pt will be I with strengthening HEP. MET 11/06/23 - Treatment 1 Descriptor MHP applied to forearm for improved extensibility of soft tissues for PROM Manual Therapy Manual Therapy PROM performed to wrist and forearm for all planes of mvmt with extended holds at end range. Pt tolerates this well . She also tolerated scar massage to anterior forearm scar well. She continues to have significant thickening of this scar. - Assessment Patient Response to Treatment Good Rehabilitation Potential Excellent Impairments Identified ADLs,Body Mechanics, Flexibility,Functional Activities,Pain,Weakness,Range of Motion,Meaningful Activities,Stiffness,Soft Tissue Mobility Progress Towards Goals Excellent Progress Assessment of Overall Progress Improving Assessment of Improvement OT discusses and demonstrates strategies for overcoming mental fear/block during outstretched hand activities that are important to pt both for her job and leisure. Pt verbalizes understanding. Pt demonstrates improvements in ROM and strength. Her pronation decreases when she makes a tight fist, from 75 degress to 45 degress. OT to add in additional MTT to address any restrictions in this movement. Reviewed with Patient/Caregiver Progress Being Made,Home Exercise Program Patient/Caregiver Understanding Excellent - Plan Therapy Recommendations Continue with Current Program Amount of Therapy Recommended 1-2 Months Frequency of Treatment Twice a Week Length of Session 45 Minutes Therapeutic Contents Active Range of Motion,Client Education,Functional Activities,Home Exercise Program,Joint Protection, Manual Therapy,Education, Stretching/Flexibility Activities,Therapeutic Activities,Therapeutic Exercises,Modalities,Sensory Re-education Modalities As Needed Additional Types of Modalities MHP/CP/Contrast
--- NOTE | 2023-11-17 11:13 | OT.OPPN ---
Current Diagnoses Pain in left wrist (11/17/23) OT Progress Note OT Outpatient Treatment Note - Adult Start: 10/11/23 09:53 Freq: Status: Active Protocol: Document 11/17/23 09:15 NOREEN (Rec: 11/17/23 09:32 NOREEN [id number]) OT Outpatient Adult Treatment Note Session Time Visit Start Date 11/17/23 Visit Start Time 09:00 Visit Stop Time 09:45 Visit Information Visit Number 01/03 Plan of Care Dates 10/11/23-11/22/23 Insurance Information T[employer] 12 visits approved Setting Treatment Setting Outpatient Care Visit Type Note Type Treatment Note - Subjective Identification Type Name Observations Pt reports that she has been progressing her weightbearing exercises on extended arm, but continues to remain fearful in this position. She reports muscle fatigue and fear of falling in this position. She also reports that the kinesio tape did not stay on her scar very long. She continues to c/o muscle weakness, not being able to hold the up position of a push up for very long. She continues to have pain especially with pronation and supination It doesn't go away , it's constant and pain with full elbow flexion. Chief Complaint(s) Loss of Motion/Stiffness,Pain Effect on Activity - Objective Objective Measurements MMT: eblow flexion L 4+, elbow extension L 4+, wrist flexion 5, wrist extension 4-. ROM L wrist/forearm: flexion 87, extension 70; supination 90, pronatation 75 Garage Attendant: L: 75#, 61#, 66# (avg 67 .3#) Pinch: tip L 14#, 3 jaw 17#, lateral 14# Short Term Goals 1.Pt will increase L wrist extension to 65 A for improved ADLs MET 10/24 2.Pt will increase pronation to 70 A for improved ability to open doors. MET 11/16 3.Pt will increase L edi programmer strength to 60# for improved tool use. MET 10/24 4.Pt will report overall improved perceived function in L UE with a QuickDash scoreof 25 5.Pt will be I with stretching and scar management HEP- MET 10/23/23 Records Management Associate Goals 1.Pt will increase L wrist strength to 4+ or better for improved IADLs. MET 11/16 1a. Pt will increase L wrist strength to 5/5 to perform necessary work physical assessment. 2.Pt will increase pronation to WFL for improved function. 2a.Pt will maintain pronation to WFL with full fist. 3.Pt will increase L edi programmer strength to 80# for improved object manipulation. 4.Pt will report/demonstrate being able to open a jar without increase in pain. 5.Pt will be I with strengthening HEP. MET 11/06/23 - Treatment 1 Descriptor MHP applied to forearm for improved extensibility of soft tissues for PROM Manual Therapy Manual Therapy PROM performed to wrist and forearm for all planes of mvmt with extended holds at end range. Pt tolerates this well . She also tolerated scar massage to anterior forearm scar well. She continues to have significant thickening of this scar. - Assessment Patient Response to Treatment Good Rehabilitation Potential Excellent Impairments Identified ADLs,Body Mechanics, Flexibility,Functional Activities,Pain,Weakness,Range of Motion,Meaningful Activities,Stiffness,Soft Tissue Mobility Progress Towards Goals Excellent Progress Assessment of Overall Progress Improving Assessment of Improvement OT discusses and demonstrates strategies for overcoming mental fear/block during outstretched hand activities that are important to pt both for her job and leisure. Pt verbalizes understanding. Pt demonstrates improvements in ROM and strength (see measurements and goals above). Her pronation decreases when she makes a tight fist, from 75 degress to 45 degress. OT to add in additional MTT to address any restrictions in this movement. Pt continues to be highly motiviated and leads a very active work and leisure life. She continues to demonstrate improvements in functional use and strength of her L UE. Skilled OT services continue to be appropriate to address remaining deficits and return toward PLOF. Reviewed with Patient/Caregiver Goals,Progress Being Made,Home Exercise Program Patient/Caregiver Understanding Excellent - Plan Therapy Recommendations Continue with Current Program Additional Therapy Recommendations Pt has used 01/03 pre-approved visits. Amount of Therapy Recommended 1-2 Months Comment OT recommends 1-2x/wk for 8-10 weeks. Length of Session 45 Minutes Therapeutic Contents Active Range of Motion,Client Education,Functional Activities,Home Exercise Program,Joint Protection, Manual Therapy,Education, Neuromuscular Re-Education, Stretching/Flexibility Activities,Therapeutic Activities,Therapeutic Exercises,Modalities,Sensory Re-education Modalities As Needed Additional Types of Modalities MHP/CP/Contrast If you are in agreement with this Plan of Care, please return a signed and dated copy. I have reviewed this Plan of Care and certify that the skilled therapy services above are required to meet the patient?s needs. Physician Signature Date Printed Name and Credentials Clinical Instructor Signature Printed Name and Credentials
--- NOTE | 2023-11-20 12:32 | OT.OP.TRT ---
Visit Care Team Role Provider Type Jeremy Santiago PA-C Attending Provider Non-Staff Family Provider Primary Care Provider Referring Provider Specialty: Medical Address: [address] [place] [address], [id number] Email: Occupational Therapy Treatment Note OT Outpatient Treatment Note - Adult Start: 10/11/23 09:53 Freq: Status: Active Protocol: Document 11/20/23 09:31 NOREEN (Rec: 11/20/23 09:46 NOREEN [id number]) OT Outpatient Adult Treatment Note Session Time Visit Start Date 11/20/23 Visit Start Time 09:02 Visit Stop Time 09:45 Visit Information Visit Number 02/02 Plan of Care Dates 10/11/23-11/22/23 Insurance Information T[employer] 12 visits approved Setting Treatment Setting Outpatient Care Visit Type Note Type Treatment Note - Subjective Identification Type Name Observations 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 Chief Complaint(s) Loss of Motion/Stiffness,Pain Effect on Activity - Objective Short Term Goals 1.Pt will increase L wrist extension to 65 A for improved ADLs MET 10/24 2.Pt will increase pronation to 70 A for improved ability to open doors. MET 11/16 3.Pt will increase L transit planning director strength to 60# for improved tool use. MET 10/24 4.Pt will report overall improved perceived function in L UE with a QuickDash scoreof 25 5.Pt will be I with stretching and scar management HEP- MET 10/23/23 Wirer Maintenance Goals 1.Pt will increase L wrist strength to 4+ or better for improved IADLs. MET 11/16 1a. Pt will increase L wrist strength to 5/5 to perform necessary work physical assessment. 2.Pt will increase pronation to WFL for improved function. 2a.Pt will maintain pronation to WFL with full fist. 3.Pt will increase L transit planning director strength to 80# for improved object manipulation. 4.Pt will report/demonstrate being able to open a jar without increase in pain. 5.Pt will be I with strengthening HEP. MET 11/06/23 - Exercises 4 Descriptor red flex bar: pronation (table ) x20 midline pronation x20 midline supination x20 2 Descriptor weight 5#: cross body punch 10x2 pronation bicep curl 10x3 Manual Therapy Manual Therapy STM to volar and dorsal forearm for pronators, supinators, and wrist flexors/ extensors as tolerated. Scar massage go anterior forearm scar. Grade III static hold DRUJ in pronation volar translation of distal radius due to limitation with volar shift test - Assessment Patient Response to Treatment Excellent Rehabilitation Potential Excellent Impairments Identified ADLs,Body Mechanics, Flexibility,Functional Activities,Pain,Weakness,Range of Motion,Meaningful Activities,Stiffness,Soft Tissue Mobility Progress Towards Goals Excellent Progress Assessment of Overall Progress Improving Assessment of Improvement Last treatment, OT noted that pt had less pronation when actively fisting hand. OT performed DRUJ ballottment test , DRUJ volar and dorsal shift test, RUJ humeroradial joint position test, distal glide of radius and volar medial and dorsal lateral radial head glide. Limitation noted with shift test in pronation only. Joint mobilization performed as well as soft tissue mobilization to the forearm. Following these, pt was able to maintain near full available pronation even with actively fisted hand. Will continue to assess. Pt tolerated additional strengthening exercises well. Cont per established POC. Reviewed with Patient/Caregiver Goals,Progress Being Made,Home Exercise Program Patient/Caregiver Understanding Excellent -
--- NOTE | 2023-11-27 13:11 | OT.OP.TRT ---
Visit Care Team Role Provider Type Jeremy Santiago PA-C Attending Provider Non-Staff Family Provider Primary Care Provider Referring Provider Specialty: Medical Address: [address] [place] [address], [id number] Email: Occupational Therapy Treatment Note OT Outpatient Treatment Note - Adult Start: 10/11/23 09:53 Freq: Status: Active Protocol: Document 11/27/23 09:07 NOREEN (Rec: 11/27/23 09:48 NOREEN [id number]) OT Outpatient Adult Treatment Note Session Time Visit Start Date 11/27/23 Visit Start Time 09:00 Visit Stop Time 09:45 Visit Information Visit Number 03/17 Plan of Care Dates 10/11/23-03/22/24 Insurance Information T[employer] 24 visits approved Setting Treatment Setting Outpatient Care Visit Type Note Type Treatment Note - Subjective Identification Type Name Observations ?The only thing is pain with full flexion at the elbow?. She also reports pain at the wrist during wall push-ups. ? My goal is to be able to do 20 push ups off my knees, that?s my goal. Then eventually a hang for 30 seconds.? Chief Complaint(s) Loss of Motion/Stiffness,Pain Effect on Activity - Objective Short Term Goals 1.Pt will increase L wrist extension to 65 A for improved ADLs MET 10/24 2.Pt will increase pronation to 70 A for improved ability to open doors. MET 11/16 3.Pt will increase L major assembly inspector strength to 60# for improved tool use. MET 10/24 4.Pt will report overall improved perceived function in L UE with a QuickDash scoreof 25 5.Pt will be I with stretching and scar management HEP- MET 10/23/23 Alf Goals 1.Pt will increase L wrist strength to 4+ or better for improved IADLs. MET 11/16 1a. Pt will increase L wrist strength to 5/5 to perform necessary work physical assessment. 2.Pt will increase pronation to WFL for improved function. 2a.Pt will maintain pronation to WFL with full fist. 3.Pt will increase L major assembly inspector strength to 80# for improved object manipulation. 4.Pt will report/demonstrate being able to open a jar without increase in pain. 5.Pt will be I with strengthening HEP. MET 11/06/23 - Exercises 9 Descriptor wrist flexion and extension stretch with elbow extended. 30 second holds x3 each 4 Descriptor red flex bar: pronation (table ) 15x2 midline pronation 15x2 midline supination 15x2 2 Descriptor weight 5#: cross body punch 10x3 pronation bicep curl 10x3 Manual Therapy Manual Therapy STM to volar and dorsal forearm for pronators, supinators, and wrist flexors/ extensors as tolerated. Scar massage go anterior forearm scar. - Assessment Patient Response to Treatment Excellent Rehabilitation Potential Excellent Impairments Identified ADLs,Body Mechanics, Flexibility,Functional Activities,Pain,Weakness,Range of Motion,Meaningful Activities,Stiffness,Soft Tissue Mobility Progress Towards Goals Excellent Progress Assessment of Overall Progress Improving Assessment of Improvement Pt continues to show benefit from STM and tolerated the addition of wrist flex/ext stretches today. Weighted exercises focus on pronated position for the entire range of motion. This continues to be most limiting concern for pt. Pt is concerned about passing her work physical. OT discussed modifications pt could perform at home with preparations of her physical fitness test. Pt continues to progress per established POC. Cont per established plan. Reviewed with Patient/Caregiver Goals,Progress Being Made,Home Exercise Program Patient/Caregiver Understanding Excellent - Plan Therapy Recommendations Continue with Current Program Amount of Therapy Recommended 1-2 Months Comment OT recommends 1-2x/wk for 8-10 weeks. Length of Session 45 Minutes Therapeutic Contents Active Range of Motion,Client Education,Functional Activities,Home Exercise Program,Joint Protection, Manual Therapy,Education, Neuromuscular Re-Education, Stretching/Flexibility Activities,Therapeutic Activities,Therapeutic Exercises,Modalities,Sensory Re-education Modalities As Needed Additional Types of Modalities MHP/CP/Contrast
--- NOTE | 2023-11-29 11:08 | OT.OP.TRT ---
Visit Care Team Role Provider Type Jeremy Santiago PA-C Attending Provider Non-Staff Family Provider Primary Care Provider Referring Provider Specialty: Medical Address: [address] [place] [address], [id number] Email: Occupational Therapy Treatment Note OT Outpatient Treatment Note - Adult Start: 10/11/23 09:53 Freq: Status: Active Protocol: Document 11/29/23 08:26 NOREEN (Rec: 11/29/23 08:31 NOREEN [id number]) OT Outpatient Adult Treatment Note Session Time Visit Start Date 11/29/23 Visit Start Time 09:00 Visit Stop Time 09:45 Visit Information Visit Number 04/16 Plan of Care Dates 10/11/23-03/22/24 Insurance Information TricarePrime 24 visits approved Setting Treatment Setting Outpatient Care Visit Type Note Type Treatment Note - Subjective Identification Type Name Observations My elbow feels like it locks after doing a few push-ups Pt reports her personal goal is 50 push-ups but to pass she needs 20 push-ups. Pt's test is at end of January. Chief Complaint(s) Loss of Motion/Stiffness,Pain Effect on Activity - Objective Short Term Goals 1.Pt will increase L wrist extension to 65 A for improved ADLs MET 10/24 2.Pt will increase pronation to 70 A for improved ability to open doors. MET 11/16 3.Pt will increase L can worker strength to 60# for improved tool use. MET 10/24 4.Pt will report overall improved perceived function in L UE with a QuickDash scoreof 25 5.Pt will be I with stretching and scar management HEP- MET 10/23/23 Snf Goals 1.Pt will increase L wrist strength to 4+ or better for improved IADLs. MET 11/16 1a. Pt will increase L wrist strength to 5/5 to perform necessary work physical assessment. 2.Pt will increase pronation to WFL for improved function. 2a.Pt will maintain pronation to WFL with full fist. 3.Pt will increase L can worker strength to 80# for improved object manipulation. 4.Pt will report/demonstrate being able to open a jar without increase in pain. 5.Pt will be I with strengthening HEP. MET 11/06/23 - Exercises 9 Descriptor wrist flexion and extension stretch with elbow extended. 30 second holds x3 each 4 Descriptor red flex bar: pronation (table ) 15x2 midline pronation 15x2 midline supination 15x2 proprioception: 30 sec x2 2 Descriptor weight 5#: cross body punch 10x3 pronation bicep curl 10x3 Manual Therapy Manual Therapy STM to volar and dorsal forearm for pronators, supinators, and wrist flexors/ extensors as tolerated. - Assessment Patient Response to Treatment Excellent Rehabilitation Potential Excellent Impairments Identified ADLs,Body Mechanics, Flexibility,Functional Activities,Pain,Weakness,Range of Motion,Meaningful Activities,Stiffness,Soft Tissue Mobility Progress Towards Goals Excellent Progress Assessment of Overall Progress Improving Assessment of Improvement Pt requires vcs to maintain positioning during proprioceptive flex bar activity. Pt requires increased rbs between free weight exercies. OT educated patient on self-mobilization using her home flex bar, pt verbalizes understanding. Pt c /o discomfort/pain when the screws on her ulna have pressure against them. OT suggests trying desensitization techniques. Pt eductated on these techniques . Pt demonstrated full pushups for 10 reps with good form. Pt was surprised that she was able to complete these . Pt requires occasional vcs for foerm. She continues to benefit from STM and demonstrates improved pronation following ( especially when increasing adding gripping into pronation ). Cont per established POC. Reviewed with Patient/Caregiver Goals,Progress Being Made,Home Exercise Program Patient/Caregiver Understanding Excellent - Plan Therapy Recommendations Continue with Current Program Amount of Therapy Recommended 1-2 Months Comment OT recommends 1-2x/wk for 8-10 weeks. Length of Session 45 Minutes Therapeutic Contents Active Range of Motion,Client Education,Functional Activities,Home Exercise Program,Joint Protection, Manual Therapy,Education, Neuromuscular Re-Education, Stretching/Flexibility Activities,Therapeutic Activities,Therapeutic Exercises,Modalities,Sensory Re-education Modalities As Needed Additional Types of Modalities MHP/CP/Contrast
--- NOTE | 2023-12-04 09:07 | OT.OP.TRT ---
Visit Care Team Role Provider Type Jeremy Santiago PA-C Attending Provider Non-Staff Family Provider Primary Care Provider Referring Provider Specialty: Medical Address: [address] [place] [address], [id number] Email: Occupational Therapy Treatment Note OT Outpatient Treatment Note - Adult Start: 10/11/23 09:53 Freq: Status: Active Protocol: Document 12/04/23 08:15 NOREEN (Rec: 12/04/23 08:14 NOREEN [id number]) OT Outpatient Adult Treatment Note Session Time Visit Start Date 12/04/23 Visit Start Time 09:00 Visit Stop Time 09:45 Visit Information Visit Number Plan of Care Dates 10/11/23-03/22/24 Insurance Information T[employer] 24 visits approved Setting Treatment Setting Outpatient Care Visit Type Note Type Treatment Note - Subjective Identification Type Name Observations I pushed my self alot on Monday, and maybe it was too much because I'm having a lot of pain. I tried gulkana pose and handstand. I did them and that was cool, but now I'm having a hard time holding light resistance. Pt rated this pain as 4/10 and described as mostly dull and achey with some sharp pain. During tx pt rated pain between 1 and 3/10. Chief Complaint(s) Loss of Motion/Stiffness,Pain Effect on Activity - Objective Short Term Goals 1.Pt will increase L wrist extension to 65 A for improved ADLs MET 10/24 2.Pt will increase pronation to 70 A for improved ability to open doors. MET 11/16 3.Pt will increase L plug assembler strength to 60# for improved tool use. MET 10/24 4.Pt will report overall improved perceived function in L UE with a QuickDash scoreof 25 5.Pt will be I with stretching and scar management HEP- MET 10/23/23 Att[facility] [employer] [employer] Goals 1.Pt will increase L wrist strength to 4+ or better for improved IADLs. MET 11/16 1a. Pt will increase L wrist strength to 5/5 to perform necessary work physical assessment. 2.Pt will increase pronation to WFL for improved function. 2a.Pt will maintain pronation to WFL with full fist. 3.Pt will increase L plug assembler strength to 80# for improved object manipulation. 4.Pt will report/demonstrate being able to open a jar without increase in pain. 5.Pt will be I with strengthening HEP. MET 11/06/23 - Exercises 9 Descriptor wrist flexion and extension stretch with elbow extended. 30 second holds x3 each 4 Descriptor red flex bar: pronation (table ) 15x3 midline pronation 15x3 midline supination 15x3 proprioception: 45 sec x2 2 Descriptor weight 3#: (reduced weight to 3# due to pt's c/o pain with resistance since Monday) cross body punch 10x3 pronation bicep curl 10x3 Manual Therapy Manual Therapy STM to volar and dorsal forearm for pronators, supinators, and wrist flexors/ extensors as tolerated. - Assessment Patient Response to Treatment Excellent Rehabilitation Potential Excellent Impairments Identified ADLs,Body Mechanics, Flexibility,Functional Activities,Pain,Weakness,Range of Motion,Meaningful Activities,Stiffness,Soft Tissue Mobility Progress Towards Goals Excellent Progress Assessment of Overall Progress Improving Assessment of Improvement Due to pt's complaint of pain with resisted activities, since the , OT reduced weight of most provocative exercises. Pt was able to tolerate well, with minimal vcs for improved form. OT had pt holding smaller weight on end to increase pronation during pronation curls as well . Pt tolerates this change well. OT visually assessed pt' s pronation with digits relaxed and digits flexed several times during tx session. When digits are flexed, pt is being pulled out of full pronation, but less so than previous treatments. Pt is responding well established treatment plan and making progress toward being able to perform necessary physical activities for work physical fitness assessment and for pt's desired leisure task of [employer]. Cont per established POC. Reviewed with Patient/Caregiver Goals,Progress Being Made,Home Exercise Program Patient/Caregiver Understanding Excellent - Plan Therapy Recommendations Continue with Current Program Amount of Therapy Recommended 1-2 Months Comment OT recommends 1-2x/wk for 8-10 weeks. Length of Session 45 Minutes Therapeutic Contents Active Range of Motion,Client Education,Functional Activities,Home Exercise Program,Joint Protection, Manual Therapy,Education, Neuromuscular Re-Education, Stretching/Flexibility Activities,Therapeutic Activities,Therapeutic Exercises,Modalities,Sensory Re-education Modalities As Needed Additional Types of Modalities MHP/CP/Contrast
--- NOTE | 2023-12-06 09:12 | OT.OP.TRT ---
Visit Care Team Role Provider Type Jeremy Santiago PA-C Attending Provider Non-Staff Family Provider Primary Care Provider Referring Provider Specialty: Medical Address: [address] [place] [address], [id number] Email: Occupational Therapy Treatment Note OT Outpatient Treatment Note - Adult Start: 10/11/23 09:53 Freq: Status: Active Protocol: Document 12/06/23 08:15 NOREEN (Rec: 12/06/23 07:26 NOREEN [id number]) OT Outpatient Adult Treatment Note Session Time Visit Start Date 12/06/23 Visit Start Time 08:15 Visit Stop Time 09:00 Visit Information Visit Number Plan of Care Dates 10/11/23-03/22/24 Insurance Information T[employer] 24 visits approved Setting Treatment Setting Outpatient Care Visit Type Note Type Treatment Note - Subjective Identification Type Name Observations I've been having a lot of pain. It has been hard to lift things Pt reports that she has been having pain since Monday when she did asa'carsarmiut pose and handstand. She had jujitsu on Monday and pain has become more consistent since then. Pt rates pain at 2-3 consistently with a 7/10 spike when lifting things and especially when she releases them. I feel like muscles are overworked and fatigued. I was able to do 17 push-ups Chief Complaint(s) Loss of Motion/Stiffness,Pain Effect on Activity Patient/Caregiver Compliance with Home Good Exercise Program - Objective Objective Measurements Quick Dash 20.45 QuickDash Work 6.25 QuickDash Sports 25 Short Term Goals 1.Pt will increase L wrist extension to 65 A for improved ADLs MET 10/24 2.Pt will increase pronation to 70 A for improved ability to open doors. MET 11/16 3.Pt will increase L commercial photographer strength to 60# for improved tool use. MET 10/24 4.Pt will report overall improved perceived function in L UE with a QuickDash scoreof 25 MET 12/06/23 5.Pt will be I with stretching and scar management HEP- MET 10/23/23 [facility] Goals 1.Pt will increase L wrist strength to 4+ or better for improved IADLs. MET 11/16 1a. Pt will increase L wrist strength to 5/5 to perform necessary work physical assessment. 2.Pt will increase pronation to WFL for improved function. 2a.Pt will maintain pronation to WFL with full fist. 3.Pt will increase L commercial photographer strength to 80# for improved object manipulation. 4.Pt will report/demonstrate being able to open a jar without increase in pain. 5.Pt will be I with strengthening HEP. MET 11/06/23 - Exercises 9 Descriptor wrist flexion and extension stretch with elbow extended. 30 second holds x3 each 4 Descriptor red flex bar: pronation (table ) 15x3 midline pronation 15x3 midline supination 15x3 proprioception: 45 sec x1 2 Descriptor weight 0#: (reduced weight to 0# due to pt's c/o pain with resistance since Monday) cross body punch 10x3 pronation bicep curl 10x3 Manual Therapy Manual Therapy STM to volar and dorsal forearm for pronators, supinators, and wrist flexors/ extensors as tolerated. - Assessment Patient Response to Treatment Excellent Rehabilitation Potential Excellent Impairments Identified ADLs,Body Mechanics, Flexibility,Functional Activities,Pain,Weakness,Range of Motion,Meaningful Activities,Stiffness,Soft Tissue Mobility Progress Towards Goals Excellent Progress Assessment of Overall Progress Improving Assessment of Improvement Due to pt's complaint of pain with resisted activities, since the weekend, OT reduced resistance during tx to allow tissues to heal. OT educated pt on proper rest for healing. Pt with improved perception of function with respect to QuickDash and has met STG #4. Pt responded well to reduced resistance during treatment. Cont per established POC. Reviewed with Patient/Caregiver Goals,Progress Being Made,Home Exercise Program Patient/Caregiver Understanding Excellent - Plan Therapy Recommendations Continue with Current Program Amount of Therapy Recommended 1-2 Months Comment OT recommends 1-2x/wk for 8-10 weeks. Length of Session 45 Minutes Therapeutic Contents Active Range of Motion,Client Education,Functional Activities,Home Exercise Program,Joint Protection, Manual Therapy,Education, Neuromuscular Re-Education, Stretching/Flexibility Activities,Therapeutic Activities,Therapeutic Exercises,Modalities,Sensory Re-education Modalities As Needed Additional Types of Modalities MHP/CP/Contrast
--- NOTE | 2023-12-11 12:17 | OT.OP.TRT ---
Visit Care Team Role Provider Type Jeremy Santiago PA-C Attending Provider Non-Staff Family Provider Primary Care Provider Referring Provider Specialty: Medical Address: [address] [place] [address], [id number] Email: Occupational Therapy Treatment Note OT Outpatient Treatment Note - Adult Start: 10/11/23 09:53 Freq: Status: Active Protocol: Document 12/11/23 10:36 NOREEN (Rec: 12/11/23 11:14 NOREEN [id number]) OT Outpatient Adult Treatment Note Session Time Visit Start Date 12/11/23 Visit Start Time 10:33 Visit Stop Time 11:15 Visit Information Visit Number Plan of Care Dates 10/11/23-03/22/24 Insurance Information T[employer]are[employer] 24 visits approved Setting Treatment Setting Outpatient Care Visit Type Note Type Treatment Note - Subjective Identification Type Name Observations Sometimes I get this almost throbbing aching deep in my hand and in the muscle of my forearm Pt reports pain happens during rest and also with lifting. Pt continues to have pain with lifting, but with increased resistance compared to last visit. Chief Complaint(s) Loss of Motion/Stiffness,Pain Effect on Activity Patient/Caregiver Compliance with Home Good Exercise Program - Objective Objective Measurements L computer numerical control programmer 80#, 75#, 80# (avg 78.3 #) Short Term Goals 1.Pt will increase L wrist extension to 65 A for improved ADLs MET 10/24 2.Pt will increase pronation to 70 A for improved ability to open doors. MET 11/16 3.Pt will increase L computer numerical control programmer strength to 60# for improved tool use. MET 10/24 4.Pt will report overall improved perceived function in L UE with a QuickDash scoreof 25 MET 12/06/23 5.Pt will be I with stretching and scar management HEP- MET 10/23/23 Bilingual Office Assistant Goals 1.Pt will increase L wrist strength to 4+ or better for improved IADLs. MET 11/16 1a. Pt will increase L wrist strength to 5/5 to perform necessary work physical assessment. 2.Pt will increase pronation to WFL for improved function. 2a.Pt will maintain pronation to WFL with full fist. 3.Pt will increase L computer numerical control programmer strength to 80# for improved object manipulation. 4.Pt will report/demonstrate being able to open a jar without increase in pain. 5.Pt will be I with strengthening HEP. MET 11/06/23 - Exercises 9 Descriptor wrist flexion and extension stretch with elbow extended. 30 second holds x3 each 4 Descriptor red flex bar: pronation (table ) 15x3 midline pronation 15x3 midline supination 15x3 proprioception: 45 sec x1 2 Descriptor weight 3#: cross body punch 10x3 pronation bicep curl 10x3 wrist flex 10x2 wrist ext 10x2 wrist radial/uln dev 10x2 Manual Therapy Manual Therapy STM to volar and dorsal forearm for pronators, supinators, and wrist flexors/ extensors as tolerated. - Assessment Patient Response to Treatment Excellent Rehabilitation Potential Excellent Impairments Identified ADLs,Body Mechanics, Flexibility,Functional Activities,Pain,Weakness,Range of Motion,Meaningful Activities,Stiffness,Soft Tissue Mobility Progress Towards Goals Excellent Progress Assessment of Overall Progress Improving Assessment of Improvement Pt tolerated return to 3# weighted exercises today. OT discussed pt activity modification and grading for sport related and work physical related tasks. Pt verbalizes understanding. OT reinforced education for proper rest for healing. Pt with progrss toward LTG #3. Cont per established POC. Reviewed with Patient/Caregiver Goals,Progress Being Made,Home Exercise Program Patient/Caregiver Understanding Excellent - Plan Therapy Recommendations Continue with Current Program Amount of Therapy Recommended 1-2 Months Comment OT recommends 1-2x/wk for 8-10 weeks. Length of Session 45 Minutes Therapeutic Contents Active Range of Motion,Client Education,Functional Activities,Home Exercise Program,Joint Protection, Manual Therapy,Education, Neuromuscular Re-Education, Stretching/Flexibility Activities,Therapeutic Activities,Therapeutic Exercises,Modalities,Sensory Re-education Modalities As Needed Additional Types of Modalities MHP/CP/Contrast
--- NOTE | 2024-01-15 12:02 | OT.OP.TRT ---
Visit Care Team Role Provider Type Jeremy Santiago PA-C Attending Provider Non-Staff Family Provider Primary Care Provider Referring Provider Specialty: Medical Address: [address] [place] [address], [id number] Email: Occupational Therapy Treatment Note OT Outpatient Treatment Note - Adult Start: 10/11/23 09:53 Freq: Status: Active Protocol: Document 01/15/24 09:31 NOREEN (Rec: 01/15/24 09:44 NOREEN [id number]) OT Outpatient Adult Treatment Note Session Time Visit Start Date 01/15/24 Visit Start Time 09:10 Visit Stop Time 09:45 Visit Information Visit Number Plan of Care Dates 10/11/23-03/22/24 Insurance Information T[employer]are[employer] 24 visits approved Setting Treatment Setting Outpatient Care Visit Type Note Type Treatment Note - Subjective Identification Type Name Observations Pt reports that as weather has been getting colder, she is noting more aches. She reports she took several weeks off of activity after having the muscle strain reported at last appointment. Pt feels like she has lost some strength. Pt continues to be concerned about performing 20 push ups for her work physical along with planks. PT has noticed some elbow clicking and popping particularlly when she moves her arm medially. She says it builds up with repeated activity. Pt c/o sharp/severe pain at night, particularly after she is full rested. She reports this pain is 7/10 and has happened about 6 times of the last month. Chief Complaint(s) Loss of Motion/Stiffness,Pain Effect on Activity Patient/Caregiver Compliance with Home Good Exercise Program - Objective Short Term Goals 1.Pt will increase L wrist extension to 65 A for improved ADLs MET 10/24 2.Pt will increase pronation to 70 A for improved ability to open doors. MET 11/16 3.Pt will increase L homeowner association manager strength to 60# for improved tool use. MET 10/24 4.Pt will report overall improved perceived function in L UE with a QuickDash scoreof 25 MET 12/06/23 5.Pt will be I with stretching and scar management HEP- MET 10/23/23 Cell Coverer Goals 1.Pt will increase L wrist strength to 4+ or better for improved IADLs. MET 11/16 1a. Pt will increase L wrist strength to 5/5 to perform necessary work physical assessment. 2.Pt will increase pronation to WFL for improved function. 2a.Pt will maintain pronation to WFL with full fist. 3.Pt will increase L homeowner association manager strength to 80# for improved object manipulation. 4.Pt will report/demonstrate being able to open a jar without increase in pain. 5.Pt will be I with strengthening HEP. MET 11/06/23 - Exercises 10 Descriptor tputty: green gross grasp, putty pulls, digit extension 2 Descriptor weight 3#: cross body punch (alternating target) 10x2 pronation bicep curl 10x2 wrist flex wrist ext wrist radial/uln dev Manual Therapy Manual Therapy STM to volar and dorsal forearm for pronators, supinators, and wrist flexors/ extensors as tolerated. 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 Pt has some tightness in forearm musculature which responds well to STM. Pt tolerated 3# weighted activity, kept to two sets due to pt's most recent complaint of strain and being sick. Pt performs with good form and maintains good pronation. Visually pronation on L is approaching that of R side. Will measure next treatment. OT believe pt would benefit from farmers carry task also to be added next treatment. Cont per established POC. Reviewed with Patient/Caregiver Goals,Progress Being Made,Home Exercise Program Patient/Caregiver Understanding Excellent -
--- NOTE | 2024-01-17 12:22 | OT.OP.TRT ---
Visit Care Team Role Provider Type Jeremy Santiago PA-C Attending Provider Non-Staff Family Provider Primary Care Provider Referring Provider Specialty: Medical Address: [address] [place] [address], [id number] Email: Occupational Therapy Treatment Note OT Outpatient Treatment Note - Adult Start: 10/11/23 09:53 Freq: Status: Active Protocol: Document 01/17/24 09:00 NOREEN (Rec: 01/17/24 07:50 NOREEN [id number]) OT Outpatient Adult Treatment Note Session Time Visit Start Date 01/17/24 Visit Start Time 09:00 Visit Information Visit Number Plan of Care Dates 10/11/23-03/22/24 Insurance Information T[employer]are[employer] 24 visits approved Setting Treatment Setting Outpatient Care Visit Type Note Type Treatment Note - Subjective Identification Type Name Observations Pt reports that she is feeling a little better today. She took yesterday off to rest and recover from a cold. Pt reports that she was able to do spiderman warm up with jujitsu on her hands with minimal compensation. Chief Complaint(s) Loss of Motion/Stiffness,Pain Effect on Activity Patient/Caregiver Compliance with Home Good Exercise Program - Objective Objective Measurements wrist flex:85 wrist ext: 70 supination: 82 pronation: 72 (P 78) MMT elbow flex 5/5, elbow ext 5/5, wrist flex 5/5, wirst ext 5/5 Short Term Goals 1.Pt will increase L wrist extension to 65 A for improved ADLs MET 10/24 2.Pt will increase pronation to 70 A for improved ability to open doors. MET 11/16 3.Pt will increase L crystal lapper strength to 60# for improved tool use. MET 10/24 4.Pt will report overall improved perceived function in L UE with a QuickDash scoreof 25 MET 12/06/23 5.Pt will be I with stretching and scar management HEP- MET 10/23/23 Contract Recruiter Goals 1.Pt will increase L wrist strength to 4+ or better for improved IADLs. MET 11/16 1a. Pt will increase L wrist strength to 5/5 to perform necessary work physical assessment. 2.Pt will increase pronation to WFL for improved function. 2a.Pt will maintain pronation to WFL with full fist. 3.Pt will increase L crystal lapper strength to 80# for improved object manipulation. 4.Pt will report/demonstrate being able to open a jar without increase in pain. 5.Pt will be I with strengthening HEP. MET 11/06/23 - Exercises 10 Descriptor tputty: green gross grasp, putty pulls, digit extension 9 Descriptor wrist flexion and extension stretch with elbow extended. 30 second holds x3 each 4 Descriptor red flex bar: pronation (table ) 15x2, 6x midline pronation 15x2, 6x midline supination 15x2, 6x proprioception: 45 sec x1 2 Descriptor weight 3#: cross body punch (alternating target) 10x3 pronation bicep curl 10x2 wrist flex 10x2 wrist ext 10x2 wrist radial/uln dev 10x2 Manual Therapy Manual Therapy STM to volar and dorsal forearm for pronators, supinators, and wrist flexors/ extensors as tolerated. - Assessment Patient Response to Treatment Excellent Rehabilitation Potential Excellent Impairments Identified ADLs,Body Mechanics, Flexibility,Functional Activities,Pain,Weakness,Range of Motion,Meaningful Activities,Stiffness,Soft Tissue Mobility Progress Towards Goals Excellent Progress Assessment of Overall Progress Improving Assessment of Improvement Pt tolerated re-introduction of red flex bar and increased weights to nearly the same as prior to her reported sprain injury without increase in symptoms. Pt demonstrates increased strength in wrist and elbow as listed in objective portion of tx note. Pt without significant changes in pronation and supination. Will measure pt's crystal lapper and pinch strength next tx and look to add monreal carry. Cont per established POC. Reviewed with Patient/Caregiver Goals,Progress Being Made,Home Exercise Program Patient/Caregiver Understanding Excellent - Plan Therapy Recommendations Continue with Current Program Amount of Therapy Recommended 1-2 Months Comment OT recommends 1-2x/wk for 8-10 weeks. Length of Session 45 Minutes Therapeutic Contents Active Range of Motion,Client Education,Functional Activities,Home Exercise Program,Joint Protection, Manual Therapy,Education, Neuromuscular Re-Education, Stretching/Flexibility Activities,Therapeutic Activities,Therapeutic Exercises,Modalities,Sensory Re-education Modalities As Needed Additional Types of Modalities MHP/CP/Contrast
--- NOTE | 2024-01-26 10:57 | OT.OP.TRT ---
Visit Care Team Role Provider Type Jeremy Santiago PA-C Attending Provider Non-Staff Family Provider Primary Care Provider Referring Provider Specialty: Medical Address: [address] [place] [address], [id number] Email: Occupational Therapy Treatment Note OT Outpatient Treatment Note - Adult Start: 10/11/23 09:53 Freq: Status: Active Protocol: Document 01/26/24 08:15 NOREEN (Rec: 01/26/24 07:29 NOREEN [id number]) OT Outpatient Adult Treatment Note Session Time Visit Start Date 01/26/24 Visit Start Time 08:15 Visit Stop Time 09:00 Visit Information Visit Number Plan of Care Dates 10/11/23-03/22/24 Insurance Information T[employer]are[employer] 24 visits approved Setting Treatment Setting Outpatient Care Visit Type Note Type Treatment Note - Subjective Identification Type Name Identification Reconciled With Medical Record Observations I've been driving a lot with my L hand and am having lasting pain after. I think it comes with over use. Pt reports pain is deep on anterior forearm. Pt reports she can do 8 push ups without pain. Pt reports she hasn't been doing much juUpMotsu lately due to work. She has been focused on preparing for her PRT. Chief Complaint(s) Loss of Motion/Stiffness,Pain Effect on Activity Patient/Caregiver Compliance with Home Good Exercise Program - Objective Objective Measurements L dietary services manager: 80#, 82#, 87# (avg 83# ) R dietary services manager: 95# L pincer 14#, L 3 jaw 16.5#, L lateral 16.25# Short Term Goals 1.Pt will increase L wrist extension to 65 A for improved ADLs MET 10/24 2.Pt will increase pronation to 70 A for improved ability to open doors. MET 11/16 3.Pt will increase L dietary services manager strength to 60# for improved tool use. MET 10/24 4.Pt will report overall improved perceived function in L UE with a QuickDash scoreof 25 MET 12/06/23 5.Pt will be I with stretching and scar management HEP- MET 10/23/23 Longterm Goals 1.Pt will increase L wrist strength to 4+ or better for improved IADLs. MET 11/16 1a. Pt will increase L wrist strength to 5/5 to perform necessary work physical assessment. 2.Pt will increase pronation to WFL for improved function. 2a.Pt will maintain pronation to WFL with full fist. 3.Pt will increase L dietary services manager strength to 80# for improved object manipulation. 4.Pt will report/demonstrate being able to open a jar without increase in pain. 5.Pt will be I with strengthening HEP. MET 11/06/23 - Exercises 12 Descriptor tband (blue) cross body punch in pronation 10x2 11 Descriptor monreal carry 10# x 60 seconds 10 Descriptor tputty: green gross grasp, putty pulls, digit extension 4 Descriptor red flex bar: pronation (table ) 12x3 midline pronation 15x3 midline supination 15x3 proprioception: 45 sec x1 2 Descriptor weight 4#: cross body punch (alternating target) 10x2 Manual Therapy Manual Therapy STM to volar and dorsal forearm for pronators, supinators, and wrist flexors/ extensors as tolerated. - Assessment Patient Response to Treatment Excellent Rehabilitation Potential Excellent Impairments Identified ADLs,Body Mechanics, Flexibility,Functional Activities,Pain,Weakness,Range of Motion,Meaningful Activities,Stiffness,Soft Tissue Mobility Progress Towards Goals Excellent Progress Assessment of Overall Progress Improving Assessment of Improvement Pt was able to tolerate three sets of 15 on red flex bar today for 2/3 exercises. OT educated pt on tband cross body pronation punch so that pt can perform at home with existing tband. Pt verbalizes and demonstrates understanding of this. Pt tolerates 60 seconds of 10# monreal carry. OT will grade this as pt is able to tolerate. OT to grade dietary services manager strengthening as well as pt has not had c/o of pain or strain exacerbation. Pt demonstrates good progress with skilled OT services, cont per established POC. Reviewed with Patient/Caregiver Goals,Progress Being Made,Home Exercise Program Patient/Caregiver Understanding Excellent - Plan Therapy Recommendations Continue with Current Program Amount of Therapy Recommended 1-2 Months Comment OT recommends 1-2x/wk for 8-10 weeks. Length of Session 45 Minutes Therapeutic Contents Active Range of Motion,Client Education,Functional Activities,Home Exercise Program,Joint Protection, Manual Therapy,Education, Neuromuscular Re-Education, Stretching/Flexibility Activities,Therapeutic Activities,Therapeutic Exercises,Modalities,Sensory Re-education Modalities As Needed Additional Types of Modalities MHP/CP/Contrast
--- NOTE | 2024-02-14 09:57 | OT.OP.TRT ---
Visit Care Team Role Provider Type Jeremy Santiago PA-C Attending Provider Non-Staff Family Provider Primary Care Provider Referring Provider Specialty: Medical Address: [address] [place] [address], [id number] Email: Occupational Therapy Treatment Note OT Outpatient Treatment Note - Adult Start: 10/11/23 09:53 Freq: Status: Active Protocol: Document 02/14/24 08:14 NOREEN (Rec: 02/14/24 09:01 [email or web address] [id number]) OT Outpatient Adult Treatment Note Session Time Visit Start Date 02/14/24 Visit Start Time 08:15 Visit Stop Time 09:00 Visit Information Visit Number Plan of Care Dates 10/11/23-03/22/24 Insurance Information T[employer] 24 visits approved Setting Treatment Setting Outpatient Care Visit Type Note Type Treatment Note - Subjective Identification Type Name Identification Reconciled With Medical Record Observations I passed my PRT yesterday. I maxed out on pushups and planks! It seems like I've come to almost a full recovery . My elbow didn't pop during the pushups. I can drive my car with my L hand. I feel like I'm almost at full recovery. Patient/Caregiver Compliance with Home Good Exercise Program - Objective Short Term Goals 1.Pt will increase L wrist extension to 65 A for improved ADLs MET 10/24 2.Pt will increase pronation to 70 A for improved ability to open doors. MET 11/16 3.Pt will increase L sample paster strength to 60# for improved tool use. MET 10/24 4.Pt will report overall improved perceived function in L UE with a QuickDash scoreof 25 MET 12/06/23 5.Pt will be I with stretching and scar management HEP- MET 10/23/23 Skilled Nursing Goals 1.Pt will increase L wrist strength to 4+ or better for improved IADLs. MET 11/16 1a. Pt will increase L wrist strength to 5/5 to perform necessary work physical assessment. 2.Pt will increase pronation to WFL for improved function. 2a.Pt will maintain pronation to WFL with full fist. 3.Pt will increase L sample paster strength to 80# for improved object manipulation. 4.Pt will report/demonstrate being able to open a jar without increase in pain. MET 02/14/24 5.Pt will be I with strengthening HEP. MET 11/06/23 - Treatment 4 Descriptor wire sample paster strengthener 15x Exercises 11 Descriptor monreal carry 10# x 2min 16 seconds 9 Descriptor wrist flexion and extension stretch with elbow extended. 30 second holds x3 each 4 Descriptor green flex bar: pronation ( table) 4x4 midline pronation 8x3 midline supination 8x3 2 Descriptor weight 4#: cross body punch (alternating target) pronation bicep curl 10x3 wrist flex 8x3 wrist ext 8x3 Manual Therapy Manual Therapy STM to volar and dorsal forearm for pronators, supinators, and wrist flexors/ extensors as tolerated. - Assessment Patient Response to Treatment Excellent Rehabilitation Potential Excellent Impairments Identified ADLs,Body Mechanics, Flexibility,Functional Activities,Pain,Weakness,Range of Motion,Meaningful Activities,Stiffness,Soft Tissue Mobility Progress Towards Goals Excellent Progress Assessment of Overall Progress Improving Assessment of Improvement Pt with complaints of soreness from her PRT test yesterday. Pt's resisted exercises modified as necessary for this . Otherwise pt tolerated treatment well. She tolerated increased time with monreal carry and tolerated increased resistance with green flex bar , although she needed fewer reps. Pt met jar opening goal and continues to make progress per established POC. Cont per POC. Reviewed with Patient/Caregiver Goals,Progress Being Made,Home Exercise Program Patient/Caregiver Understanding Excellent - Plan Therapy Recommendations Continue with Current Program Amount of Therapy Recommended 1-2 Months Comment OT recommends 1-2x/wk for 8-10 weeks. Length of Session 45 Minutes Therapeutic Contents Active Range of Motion,Client Education,Functional Activities,Home Exercise Program,Joint Protection, Manual Therapy,Education, Neuromuscular Re-Education, Stretching/Flexibility Activities,Therapeutic Activities,Therapeutic Exercises,Modalities,Sensory Re-education Modalities As Needed Additional Types of Modalities MHP/CP/Contrast
--- NOTE | 2024-02-19 13:16 | OT.OP.TRT ---
Visit Care Team Role Provider Type Jeremy Santiago PA-C Attending Provider Non-Staff Family Provider Primary Care Provider Referring Provider Specialty: Medical Address: [address] [place] [address], [id number] Email: Occupational Therapy Treatment Note OT Outpatient Treatment Note - Adult Start: 10/11/23 09:53 Freq: Status: Active Protocol: Document 02/19/24 08:15 NOREEN (Rec: 02/19/24 07:28 [email or web address] [id number]) OT Outpatient Adult Treatment Note Session Time Visit Start Date 02/19/24 Visit Start Time 08:15 Visit Stop Time 09:00 Visit Information Visit Number Plan of Care Dates 10/11/23-03/22/24 Insurance Information T[employer] 24 visits approved Setting Treatment Setting Outpatient Care Visit Type Note Type Treatment Note - Subjective Identification Type Name Identification Reconciled With Medical Record Observations I can drive without my elbow clicking. Pt reports that she can functionally use her L UE for all her daily tasks. She continues to have sensitivity at the scar. Chief Complaint(s) Loss of Motion/Stiffness,Pain Effect on Activity Patient/Caregiver Compliance with Home Good Exercise Program - Objective Objective Measurements MMT L: elbow flex 5/5 ; elbow ext 5/5 ; wrist flex 5/5; wrist ext 5/5 ROM L: supination 90A; pronation 75A Pipe Out Worker L: 90#, 97#, 102# (96.3#) L lateral pinch: 19# L 3 jaw christelle: 16.5# L pincer: 15# Short Term Goals 1.Pt will increase L wrist extension to 65 A for improved ADLs MET 10/24 2.Pt will increase pronation to 70 A for improved ability to open doors. MET 11/16 3.Pt will increase L physician office clin asst strength to 60# for improved tool use. MET 10/24 4.Pt will report overall improved perceived function in L UE with a QuickDash score of 25 MET 12/06/23 5.Pt will be I with stretching and scar management HEP- MET 10/23/23 Brand Director Goals 1.Pt will increase L wrist strength to 4+ or better for improved IADLs. MET 11/16 1a. Pt will increase L wrist strength to 5/5 to perform necessary work physical assessment. MET 02/19/24 2.Pt will increase pronation to WFL for improved function. MET 02/19/24 2a.Pt will maintain pronation to WFL with full fist. 3.Pt will increase L physician office clin asst strength to 80# for improved object manipulation. MET 02/18 4.Pt will report/demonstrate being able to open a jar without increase in pain. MET 02/14/24 5.Pt will be I with strengthening HEP. MET 11/06/23 - Exercises 9 Descriptor wrist flexion and extension stretch with elbow extended. 30 second holds x3 each 4 Descriptor red flex bar: pronation (table ) 10x3 midline pronation 10x4 midline supination 10x4 Manual Therapy Manual Therapy STM to volar and dorsal forearm for pronators, supinators, and wrist flexors/ extensors as tolerated. - Assessment Patient Response to Treatment Excellent Rehabilitation Potential Excellent Impairments Identified ADLs,Body Mechanics, Flexibility,Functional Activities,Pain,Weakness,Range of Motion,Meaningful Activities,Stiffness,Soft Tissue Mobility Progress Towards Goals Excellent Progress Assessment of Overall Progress Improving Assessment of Improvement Pt tolerated tx well. She completed assessments for ROM and strength, see objective section for details. She tolerated flex bar activity and benefited from STM following task. Pt makes excellent progress and has met or exceed all goals. D/C to HEP. Reviewed with Patient/Caregiver Goals,Progress Being Made,Home Exercise Program Patient/Caregiver Understanding Excellent - Plan Therapy Recommendations Discharge to Home Exercise Program
--- NOTE | 2024-02-19 13:17 | OT.OP.DC ---
Visit Care Team Role Provider Type Jeremy Santiago PA-C Attending Provider Non-Staff Family Provider Primary Care Provider Referring Provider Address: [address] [place] [address], [id number] Email: OT Outpatient OT Outpatient Adult Evaluation Start: 10/11/23 09:53 Freq: Status: Active Protocol: Document 10/11/23 09:57 NOREEN (Rec: 10/11/23 11:37 NOREEN [id number]) General Information - Adult Visit Information Visit Number [id number] Plan of Care Dates 10/11/23-11/22/23 Insurance Information Prime, 12 visits approved Session Time Visit Start Date 10/11/23 Visit Start Time 09:54 Visit Stop Time 10:45 Setting Treatment Setting Outpatient Care Visit Type Note Type Initial Evaluation Referral Referring Physician Jeremy Montiel Reason for Referral limited ROM of left wrist s/p ORIF Identification Identification Confirmed Yes Identification Confirmed By self Goals Objective Measurements Objective Measurements MMT: Elbow flexion L 4; elbow extension L 4; wrist flex 5, wrist ext 4- (R UE 5/5) ROM L wrist/forearm: flexion 65A/70P; extension 55A/74P; radial deviation 19A, ulnar deviation 35A; pronation 52A/ 81P; supination 80A/88P ROM L thumb: MP (+)10 to 72 A; IP (-) 4 to 81 Box Brander: R 96#; L 47# avg Pinch: tip R 14#, L 8#; 3 jaw R 19#, L 10#; lateral R 16#, L 13# Sensation assessment with 10g monofilament. Pt with impaired sensation at radial nerve innervation of R thumb. Short Term Goals Short Term Goals 1.Pt will increase L wrist extension to 65 A for improved ADLs 2.Pt will increase pronation to 70 A for improved ability to open doors. 3.Pt will increase L master tax advisor strength to 60# for improved tool use. 4.Pt will report overall improved perceived function in L UE with a QuickDash score of 25 5.Pt will be I with stretching and scar management HEP Long-Term Goals Long-Term Goals 1.Pt will increase L wrist strength to 4+ or better for improved IADLs. 2.Pt will increase pronation to WFL for improved function. 3.Pt will increase L master tax advisor strength to 80# for improved object manipulation. 4.Pt will report/demonstrate being able to open a jar without increase in pain. 5.Pt will be I with strengthening HEP. Assessment/Plan Assessment Patient Response Excellent Rehabilitation Potential Excellent Impairments Identified ADLs,Body Mechanics, Coordination/Dexterity, Flexibility,Functional Activities,Pain,Weakness,Range of Motion,Recreational Activities,Meaningful Activities,Soft Tissue Mobility Treatment Assessment Stephie is a 23 yo F sustained who reports falling down on the mat during . She says she heard and felt it break. Stephie presented to ED with L wrist pain s/p fall on 07/08/23, x-ray imaging showed comminuted and moderately displaced fx of the mid ulnar and radial shafts. Stephie underwent ORIF of left radius and ulna on 07/10. She was referred to OT due to limited ROM of left (non- dominant) wrist. Stephie has no significant Pmhx. PLOF: Prior to injury, Stephie trained jerrell 4-5/ week, participating in moderate to intense exercises an hour and a half each time. 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 She is responsible for patient care (taking vitals, helping patients on/off of mat, etc) as well as computer and paperwork. Part of her job requirements as a [employer] personnel is a yearly PRT ( physical readiness test) and to participate in regular ongoing physical training. Prior to injury, Stephie was I with these. Current: Stephie reports having to modify her work related tasks. She has a difficult time using a blood pressure cuff and has been unable to perform her duties during a [employer] situation. She is unable to participate in PRT (physical readiness test) and is unable to participate in physical training with the [employer]. With her BADL/IADL, she reports difficulty in all B tasks, but especially opening jars, scrubbing the bathroom, and cutting vegetables. She reports that she cuts a lot of vegetables but she is unable to hold the food still with her L hand while cutting and is concerned she is going to cut herself. Stephie complains about having difficulty opening doors. She previously would steer the car, primarily with her L hand , she is now having to use hands equally. She is also unable to wash her back during bathing. At times she has to ask assistance from her partner to complete BADL/IADL tasks. Stephie reports pain on volar and dorsal aspects of radial forearm extending distally to MP joints of dorsal hand for digits 1-3 and on the volar hand the lateral edge of her thumb distal to IP. She rates these between 3-6/10 at rest. At times her pain reports are as low as 2/10. QuickDash Disability/Symptom score: 50; Work Module score: 25; Sports Module Score 75 Stephie is a motivated 28 year-old who was living a very physically active life prior to her injury. She presents with decreased ROM, muscle weakness, scar sensitivity ( especially on anterior forearm , with keloiding), and impaired sensation. She demonstrates compensatory strategies of the shoulder rather than finer movements of the forearm and hand when engaging in her environment. These deficits limit her ability to engage in meaningful activity, work related tasks, leisure tasks, and her basic ADL needs. Skilled OT services are appropriate to address these deficits and promote return to PLOF. Reviewed with Patient Goals,Home Exercise Program Patient Understanding Excellent Plan Length of treatment (weeks) 6 Plan of Care Start Date 10/11/23 Plan of Care End Date 11/22/23 Treatment Frequency Twice a Week Treatment Duration 45 Minutes Therapeutic Contents Active Range of Motion, Functional Activities,Home Exercise Program,Joint Protection,Manual Therapy, Education,Neuromuscular Re- Education,Stretching/ Flexibility Activities, Therapeutic Activities, Therapeutic Exercises, Modalities Additional Areas of Treatment MHP/CP/Contrast Patient Instruction Home Exercise Program,Plan of Care Functional Wrist/Hand Scan Hand Side Sensory Assessment Sensory Profile2 OT Outpatient Treatment Note - Adult Start: 10/11/23 09:53 Freq: Status: Active Protocol: Document 02/19/24 08:15 NOREEN (Rec: 02/19/24 07:28 NOREEN [id number]) OT Outpatient Adult Discharge Note Session Time Visit Start Date 02/19/24 Visit Start Time 08:15 Visit Stop Time 09:00 Visit Information Visit Number Plan of Care Dates 10/11/23-03/22/24 Insurance Information TricarePrime 24 visits approved Setting Treatment Setting Outpatient Care Visit Type Note Type Discharge Note - Subjective Identification Type Name Identification Reconciled With Medical Record Observations I can drive without my elbow clicking. Pt reports that she can functionally use her L UE for all her daily tasks. She continues to have sensitivity at the scar. Chief Complaint(s) Loss of Motion/Stiffness,Pain Effect on Activity Patient/Caregiver Compliance with Home Good Exercise Program - Objective Objective Measurements MMT L: elbow flex 5/5 ; elbow ext 5/5 ; wrist flex 5/5; wrist ext 5/5 ROM L: supination 90A; pronation 75A Box Brander L: 90#, 97#, 102# (96.3#) L lateral pinch: 19# L 3 jaw christelle: 16.5# L pincer: 15# Short Term Goals 1.Pt will increase L wrist extension to 65 A for improved ADLs MET 10/24 2.Pt will increase pronation to 70 A for improved ability to open doors. MET 11/16 3.Pt will increase L master tax advisor strength to 60# for improved tool use. MET 10/24 4.Pt will report overall improved perceived function in L UE with a QuickDash score of 25 MET 12/06/23 5.Pt will be I with stretching and scar management HEP- MET 10/23/23 [place] [employer] Driver Goals 1.Pt will increase L wrist strength to 4+ or better for improved IADLs. MET 11/16 1a. Pt will increase L wrist strength to 5/5 to perform necessary work physical assessment. MET 02/19/24 2.Pt will increase pronation to WFL for improved function. MET 02/19/24 2a.Pt will maintain pronation to WFL with full fist. 3.Pt will increase L master tax advisor strength to 80# for improved object manipulation. MET 02/18 4.Pt will report/demonstrate being able to open a jar without increase in pain. MET 02/14/24 5.Pt will be I with strengthening HEP. MET 11/06/23 - Assessment Patient Response to Treatment Excellent Rehabilitation Potential Excellent Impairments Identified ADLs,Body Mechanics, Flexibility,Functional Activities,Pain,Weakness,Range of Motion,Meaningful Activities,Stiffness,Soft Tissue Mobility Progress Towards Goals Excellent Progress Assessment of Overall Progress Improving Assessment of Improvement Pt has made excellent progress since beginning skilled OT services. Pt reports a return to normal function for work, sport, and home tasks. Pt continues to have occasional elbow popping, but reports this as much less often than previously. Pt recently exceeded her expectations performing her work PRT beyond her initial goal to meet minimal passing requirement. Pt demonstrates improvements in AROM and muscle strength, please see objective section for specific details. Pt has met or exceeded all established goals . D/C pt to HEP. Reviewed with Patient/Caregiver Goals,Progress Being Made,Home Exercise Program Patient/Caregiver Understanding Excellent - Plan Therapy Recommendations Discharge to Home Exercise Program
== END 2024-02-21 14:47 | disposition home or self-care (01) ==
LOC: OT 08:15
PROVIDERS: Family Provider Physician Assistant; PCP Physician Assistant; Referring Provider Physician Assistant; Visit Provider Physician Assistant
DX: M25.532 Pain in left wrist (principal)
CPT/HCPCS: 97110; 97140; 97166; 97530

== ENCOUNTER → 2024-05-13 09:35 | Outpatient (CLI) | payer OTHER, SELFPAY ==
--- NOTE | 2024-05-13 09:36 | DI.US.S_ITS ---
LIMITED ULTRASOUND OF LEFT BREAST AND AXILLA: 05/13/2024 CLINICAL: Palpable left breast lump. No prior exams were available for comparison. Real-time ultrasound of the left breast 6 o'clock, and axilla regions was performed. Munguia scale images of the real-time examination were reviewed. No sonographic abnormality is seen in the area of clinical concern in the left breast at 6 o'clock, 4 cm from the nipple. IMPRESSION: NEGATIVE No sonographic abnormality in the area of clinical concern. No sonographic evidence of malignancy. Recommend routine screening mammogram starting at age 40. Clinical follow-up is also recommended, and further management of palpable abnormalities or other focal signs or symptoms should be based on the results of clinical evaluation. If palpable abnormality or other concerning symptom persists or progresses, further clinical evaluation should be considered. Findings and recommendations were conveyed to the patient during today's evaluation. This exam was interpreted at Station ID: [id number]. Electronically Signed By: Anabella Vasquez M.D., Ph.D. eb/:05/13/2024 10:48:01 letter sent: Clinical Evaluation ACR BI-RADS Category 1: Negative
== END ==
PROVIDERS: Family Provider Physician Assistant; PCP Physician Assistant; Referring Provider Family Medicine; Visit Provider Family Medicine
DX: N63.0 Unspecified lump in unspecified breast (principal)
CPT/HCPCS: 76642

== ENCOUNTER → 2024-05-29 08:23 | Outpatient (CLI) | payer OTHER, SELFPAY | PROVIDERS: Family Provider Physician Assistant; PCP Physician Assistant; Referring Provider Chiropractor; Visit Provider Chiropractor | DX: R07.9 Chest pain, unspecified (principal); R94.2 Abnormal results of pulmonary function studies | CPT/HCPCS: 94060 ==

== ENCOUNTER → 2024-05-29 08:24 | Outpatient (CLI) | payer OTHER, SELFPAY ==
--- NOTE | 2024-05-29 08:50 | DI.RAD.S_ITS ---
PROCEDURE: XR CHEST 2V INDICATIONS: CHEST PAIN TECHNIQUE: 2 views of the chest were acquired. COMPARISON: None. FINDINGS: Surgical changes and devices: None. Lungs and pleura: Lungs are clear. No pleural effusions or pneumothorax. Mediastinum: Mediastinal contours are normal. Heart size is normal. Bones and chest wall: No suspicious bony abnormalities. Soft tissues appear unremarkable. IMPRESSION: No acute cardiopulmonary abnormality is seen. Dictated by: Waylon Luna M.D. on 05/29/2024 at 10:59 Approved by: Waylon Luna M.D. on 05/29/2024 at 11:02
--- NOTE | 2024-05-29 08:51 | DI.ECHO.S_ITS ---
[facility] : : [address] : : [place] : : [id number] : : Phone: [phone] Echocardiogram Report + + :Name: LIBBY ARIAS Study Date: 05/29/2024 Height: 69 in : :[facility] ReadingLocation: Weight: 170 lb : : Gender: Female BSA: 1.9 m2 : :: 2000 Age: 23 yrs BP: 130/80 mmHg: :Reason For Study: EVAL ARTERIAL STATUS : :Ordering Physician: BRENNON, : :SUZIE Performed By: Monica Velasco : :Referring: SUZIE WILLETT : + + Interpretation Summary The left ventricle is normal in size and wall thickness. Left ventricular systolic function appears normal without focal wall motion abnormalities. The ejection fraction is estimated to be 65-70%. Diastolic parameters suggest probable normal left ventricular diastolic function and normal filling pressures. The right ventricle is normal in size and function. Pulmonary artery pressures cannot be estimated because of the lack of a measurable TR jet velocity. The left atrial size is normal. There is no significant valvular heart disease. The aortic root is normal size. Procedure: A two-dimensional transthoracic echocardiogram with color flow and Doppler was performed. The study quality was technically adequate. There is no prior echocardiogram noted for this patient. The patient was in sinus rhythm with heart rates between 65-74 bpm during the exam. Left Ventricle: The left ventricle is normal in size and wall thickness. Left ventricular systolic function appears normal without focal wall motion abnormalities. The ejection fraction is estimated to be 65-70%. Diastolic parameters suggest probable normal left ventricular diastolic function and normal filling pressures. Right Ventricle: The right ventricle is normal in size and function. Atria: The left atrial size is normal. Right atrial size is normal. There is no Doppler evidence for an interatrial shunt. Mitral Valve: The mitral valve leaflets appear to open well. There is no mitral valve stenosis. There is no mitral regurgitation noted. Aortic Valve: The aortic valve is trileaflet. The aortic valve opens well. There is no aortic valve stenosis. No aortic regurgitation is present. Tricuspid Valve: The tricuspid valve leaflets are thin and pliable. No tricuspid regurgitation. Pulmonary artery pressures cannot be estimated because of the lack of a measurable TR jet velocity. Pulmonic Valve: The pulmonic valve leaflets are thin and pliable; valve motion is normal. There is mild pulmonic regurgitation. There is no significant valvular heart disease. Great Vessels: The aortic root is normal size. The dimensions of the ascending aorta are normal. The IVC is dilated (diameter is greater than 2.1 cm) yet it collapses greater than 50% with a sniff. This suggests a right atrial pressure of 8 mm Hg. Pericardium/ Pleura There is no pericardial effusion. There is no pleural effusion. MMode/2D Measurements & Calculations LVIDd: 5.0 cm LVOT diam: 2.0 cm LVIDs: 2.9 cm Ao root diam: 2.5 cm FS: 42.3 % asc Aorta Diam: 2.7 cm EPSS: 0.48 cm Ao Arch Diam (Prox Trans): 2.5 cm IVSd: 0.74 cm LVPWd: 0.71 cm LV abraham. diameter/BSA (cm/m^2): 2.6 LV sys. diameter/BSA (cm/m^2): 1.5 LA A2 area: 15.8 cm2 RA long axis: 3.8 cm LA A4 area: 13.2 cm2 RA area: 9.9 cm2 LA length (vol): 4.9 cm RA vol: 22.3 ml LA vol: 36.4 ml RA : 11.6 ml/m2 LA vol index: 18.9 ml/m2 IVC diam: 2.3 cm RVD1 (basal): 3.4 cm RVD2 (mid): 2.5 cm TAPSE: 2.1 cm Doppler Measurements & Calculations Ao V2 max: 128.4 cm/sec LVOT Max Donnell: 83.6 cm/sec Ao V2 mean: 88.0 cm/sec LV V1 max P.8 mmHg Ao max P.6 mmHg LV V1 VTI: 18.6 cm Ao mean P.6 mmHg CHLOE(I,D): 2.4 cm2 Ao V2 VTI: 24.5 cm CHLOE(V,D): 2.1 cm2 sev ratio: 0.76 CHLOE indexed to BSA (cm^2/m^2): 1.2 MV E max donnell: 81.1 cm/sec PA V2 max: 115.4 cm/sec MV A max donnell: 53.9 cm/sec PA V2 mean: 76.9 cm/sec MV E/A: 1.5 PA mean P.7 mmHg Med Peak E' Donnell: 16.7 cm/sec PA pr(Accel): 20.8 mmHg E/E' med: 4.8 Lat Peak E' Donnell: 24.0 cm/sec E/E' lat: 3.4 E/e' average: 4.1 MV dec time: 0.21 sec SV(LVOT): 58.6 ml Reading Physician:02:08 PM
--- NOTE | 2024-05-29 08:51 | DI.RAD.S_ITS ---
PROCEDURE: XR FOREARM LT 2V INDICATIONS: PAIN TECHNIQUE: 2 views of the forearm were acquired. COMPARISON: [facility], CR, XR FOREARM LT 2V, 07/08/2023, 13:34. FINDINGS: Bones: No fractures or dislocations. Plate screw fixation of the radial and ulnar shafts. The hardware appears intact evidence of complication. No suspicious bony lesions. Soft tissues: No suspicious soft tissue calcifications or masses. IMPRESSION: No acute osseous abnormalities. Plate and screw fixation of the radius and ulna without evidence of hardware complication. Dictated by: Waylon Luna M.D. on 05/29/2024 at 11:02 Approved by: Waylon Luna M.D. on 05/29/2024 at 11:03
[2024-05-29 09:43] LABS: Appearance Urine UA SL CLOUDY; Bilirubin Urine UA NEGATIVE (NEGATIVE); Color Urine UA YELLOW; Glucose Urine UA NEGATIVE (Negative); Ketones Urine UA NEGATIVE (NEGATIVE); Leukocyte Esterase Urine UA 1+ (NEGATIVE); Nitrite Urine UA NEGATIVE (Negative); Occult Blood Urine UA NEGATIVE (Negative); Protein Urine UA NEGATIVE (Negative); Urobilinogen Urine UA 0.2 E.U./dL (0.2)
[2024-05-29 09:45] LABS: pH Urine UA 6.5 (4.5-8.0)
[2024-05-29 09:48] LABS: Urine Volume 10mL (spun)
[2024-05-29 09:50] LABS: Bacteria Urine Moderate (10-30); Culture Indicated Urine Specimen Cultured; RBC Urine None Seen (0-5/HPF); Squamous Epithelial Cell Urine 1-5 /HPF (0-5/HPF); WBC Urine 5-10/HPF (0-5/HPF)
[2024-05-29 10:03] LABS: Alanine Aminotransferase 18 IU/L (<35); Albumin 4.3 g/dL (3.5-5.0); Albumin Globulin Ratio 1.7 (1.0-2.8); Alkaline Phosphatase 49 U/L (38-126); Aspartate Aminotransferase 23 IU/L (14-36); BUN Creatinine Ratio 19.3 (6-22); Bilirubin Total 0.4 mg/dL (0.2-1.3); Blood Urea Nitrogen 17 mg/dL (7-17); Calcium 9.2 mg/dL (8.4-10.2); Carbon Dioxide 23 mmol/L (22-32); Chloride 104 mmol/L (98-107); Estimated Glomerular Filt Rate > 60 mL/min (>60); Globulin 2.5 g/dL (1.7-4.1); Glucose 108 mg/dL (70-100); HEMOLYSIS < 15 (0-50); Potassium 4.5 mmol/L (3.4-5.1); Sodium 137 mmol/L (137-145); Total Protein 6.8 g/dL (6.3-8.2)
== END ==
PROVIDERS: Family Provider Physician Assistant; PCP Physician Assistant; Referring Provider Chiropractor; Visit Provider Chiropractor
DX: I37.1 Nonrheumatic pulmonary valve insufficiency (principal); R07.9 Chest pain, unspecified; E11.9 Type 2 diabetes mellitus without complications; J34.2 Deviated nasal septum; M79.602 Pain in left arm
CPT/HCPCS: 36415; 71046; 73090; 80053; 81001; 87086; 93306

== ENCOUNTER → 2024-07-03 15:57 | Outpatient (CLI) | payer OTHER, SELFPAY ==
--- NOTE | 2024-07-03 15:58 | DI.MRI.S_ITS ---
PROCEDURE: MR SHOULDER RT WO CON INDICATIONS: RT SHLD PX SLAP TEAR W PAIN,RADICULOPATHY TECHNIQUE: Noncontrast oblique coronal T2 fast spin echo with fat saturation, oblique sagittal T1 spin echo and T2 fast spin echo with fat saturation, axial T1 spin echo and T2 fast spin echo with fat saturation through the shoulder. COMPARISON: [facility], MR, MR SHOULDER RT WO CON, 12/10/2021, 20:31. FINDINGS: Image quality: Excellent. Rotator cuff: The supraspinatus, infraspinatus, teres minor, and subscapularis tendons are intact. Rotator cuff musculature is normal in bulk. Bones and bursae: No acute trabecular bone injury or fracture. No focal glenohumeral cartilage defect is seen given a paucity of glenohumeral joint fluid. Acromioclavicular joint is normally aligned. Trace subacromial/subdeltoid bursal fluid. Capsule and soft tissues: Nondisplaced tearing of the superior labrum extending into the anterior superior and posterior superior labrum. AP focal fluid collection adjacent to the anterior superior labrum measuring 10 x 9 x 8 mm may represent loculated joint fluid versus a paralabral cyst. Proximal biceps long head tendon is intact. There is effacement of the normal fat signal in the rotator interval. The anterior band of the inferior glenohumeral ligament and the middle glenohumeral ligament are thickened. IMPRESSION: 1. Nondisplaced tearing of the superior labrum extending to the posterior superior and anterior superior labrum, likely similar in extent when compared to the MRI from 12/10/2021 given relative lack of joint fluid. A 10 mm fluid collection adjacent to the anterior superior labrum is most likely a paralabral cyst versus focal loculated joint fluid. 2. Intact biceps long head tendon. No significant rotator cuff tendon tearing. 3. Effacement of the rotator interval fat and thickening of the middle and inferior glenohumeral ligaments are nonspecific, but can be seen in the setting of the clinical syndrome of adhesive capsulitis. Approved by: Garry Jackson M.D. on 07/04/2024 at 8:34
--- NOTE | 2024-07-03 15:58 | DI.MRI.S_ITS ---
PROCEDURE: MR CERVICAL SPINE WO CON INDICATIONS: RT SHLD PX SLAP TEAR W PAIN,RADICULOPATHY TECHNIQUE: Noncontrast sagittal T1 spin echo and T2 fast spin echo, sagittal STIR, foraminal oblique sagittal T2 fast spin echo, and axial gradient echo or T2 fast spin echo through the cervical spine. COMPARISON: None. FINDINGS: Image quality: Excellent. Alignment and Curvature: There is normal bony alignment. Bone Marrow: Marrow demonstrates normal overall signal. Spinal Cord: Visualized spinal cord has normal size and signal. No cerebellar tonsillar herniation. Paraspinous Soft Tissues: No paravertebral masses. Prevertebral soft tissues are normal in thickness. C2-C3: No canal stenosis or foraminal stenosis. C3-C4: No canal stenosis or foraminal stenosis. C4-C5: No canal stenosis or foraminal stenosis. C5-C6: Mild central posterior disc protrusion indenting on the cord. [id number] canal stenosis. AP diameter of the central canal and measures 9.1 mm. There is no significant foraminal stenosis.. C6-C7: There is moderately large right posterior disc protrusion with associated inferior disc extrusion. There is obliteration of the right C7 nerve root in the right lateral recess. There is significant impingement on the right ventral cord. There is moderate canal stenosis at the level of the central canal, where it measures 8.4 mm in AP diameter. There is severe stenosis of the right side of the canal and marked stenosis of the right lateral recess. The disc protrusion/extrusion measures approximately 1.1 x 1.2 x 0.6 cm. Reference T2 sagittal image 6 of series 4 and T2 axial image 34 of series 3. C7-T1: Bilateral facet hypertrophy. Bilateral uncovertebral joint hypertrophy. No canal stenosis. Moderate bilateral foraminal stenosis. IMPRESSION: 1. The most significant level is C6-C7. There is a large right posterior disc protrusion/extrusion. There is moderate central canal stenosis. There is severe stenosis on the right side of the canal and marked stenosis of the right lateral recess. There is obliteration of the right C7 nerve root in the right lateral recess. 2. A central posterior disc protrusion at C5-C6 results in [id number] canal stenosis. Dictated by: Adrian Garcia M.D. on 07/04/2024 at 11:59 Approved by: Adrian Garcia M.D. on 07/04/2024 at 12:04
== END ==
LOC: MRI 15:57
PROVIDERS: Family Provider Physician Assistant; PCP Physician Assistant; Referring Provider Nurse Practitioner Family; Visit Provider Nurse Practitioner Family
DX: S43.431A Superior glenoid labrum lesion of right shoulder, initial encounter (principal); M50.123 Cervical disc disorder at C6-C7 level with radiculopathy; M48.02 Spinal stenosis, cervical region; M48.03 Spinal stenosis, cervicothoracic region; M47.813 Spondylosis without myelopathy or radiculopathy, cervicothoracic region; M25.511 Pain in right shoulder; X58.XXXA Exposure to other specified factors, initial encounter
CPT/HCPCS: 72141; 73221

== ENCOUNTER → 2024-08-15 14:34 | Outpatient (CLI) | payer OTHER, SELFPAY | PROVIDERS: Family Provider Physician Assistant; PCP Physician Assistant; Referring Provider Nurse Practitioner Family; Visit Provider Nurse Practitioner Family | DX: M54.2 Cervicalgia (principal) | CPT/HCPCS: 95886; 95910 ==